=== PATIENT | male | born 1995 | race Caucasian/White ===

== ENCOUNTER → 2017-10-18 | Outpatient (CLI) | payer OTHER | LOC: M RAD 13:22 | DX: M79.604 Pain in right leg (principal); I73.00 Raynaud's syndrome without gangrene | CPT/HCPCS: 93926 ==

== ENCOUNTER → 2018-01-29 | Outpatient (CLI) | payer OTHER ==
[~2018-01-29] MED LIST: HEPARIN 1,000 UNITS/ML 10ML VIAL (FOR RADIOLOGY& DIALYSIS ONLY) As Ordered; ISOVUE-300 61% 50ML VIAL (Q9967) As Ordered; LIDOCAINE 2% MDV 20 ML VIAL As Ordered; MIDAZOLAM INJ 2 MG/2 ML VIAL (J2250) As Ordered; fentaNYL 100 MCG/2 ML INJECTION (J3010) As Ordered
[2018-01-29 07:23] LABS: HEMATOCRIT 47.3 % (42.0-52.0); HEMOGLOBIN 16.3 g/dl (13.5-17.5); MEAN CORPUSCULAR HEMOGLOBIN 31.6 pg (27.0-33.0); MEAN CORPUSCULAR HGB CONC 34.5 g/dl (32.0-36.5); MEAN CORPUSCULAR VOLUME 91.7 fl (80.0-96.0); PLATELET COUNT, AUTOMATED 227 10^3/uL (150-450); RED BLOOD COUNT 5.16 10^6/uL (4.30-6.10); RED CELL DISTRIBUTION WIDTH 11.5 % (11.5-14.5); WHITE BLOOD COUNT 8.4 10^3/uL (4.0-10.0)
[2018-01-29 07:32] LABS: INR 0.99; PROTHROMBIN TIME 13.1 SECONDS (12.1-14.4)
[2018-01-29 07:49] LABS: ANION GAP 6 MEQ/L (8-16); BLOOD UREA NITROGEN 23 MG/DL (7-18); CALCIUM LEVEL 9.1 MG/DL (8.5-10.1); CARBON DIOXIDE LEVEL 28 MEQ/L (21-32); CHLORIDE LEVEL 104 MEQ/L (98-107); CREATININE FOR GFR 1.27 MG/DL (0.70-1.30); GLOMERULAR FILTRATION RATE > 60.0 (>60); GLUCOSE, FASTING 104 MG/DL (70-100); SODIUM LEVEL 138 MEQ/L (136-145)
== END | disposition home or self-care (01) ==
LOC: M IRPRO 06:55
DX: I73.9 Peripheral vascular disease, unspecified (principal)
CPT/HCPCS: 36247

== ENCOUNTER 2018-04-22 09:56 | Outpatient (CLI) | payer OTHER ==
[~2018-04-22] VITALS: Ht 175.3 cm; Wt 94.3 kg
[~2018-04-22 09:56] MED LIST changes: +BUPIVACAINE HCL 0.5% 30 ML VIAL As Ordered ONE; +CONRAY-60 60% 50ML VIAL (Q9961) As Ordered ONE; +FERR325T16 PO; -HEPARIN 1,000 UNITS/ML 10ML VIAL (FOR RADIOLOGY& DIALYSIS ONLY) As Ordered; +HEPARIN SOD (PORCINE) 5000 UNITS/ML VIAL As Ordered ONE; -ISOVUE-300 61% 50ML VIAL (Q9967) As Ordered; +LIDOCAINE 1% SDV INJ 30 ML VIAL As Ordered ONE; -LIDOCAINE 2% MDV 20 ML VIAL As Ordered; +LR 1,000 ML IV ONE; -MIDAZOLAM INJ 2 MG/2 ML VIAL (J2250) As Ordered; +NORC1TAB4 PO; +NORCOTAB PO; +THROMBIN SOLN 20,000 UNITS KIT As Ordered ONE; -fentaNYL 100 MCG/2 ML INJECTION (J3010) As Ordered
[2018-04-22] MEDS ORDERED: ONDANSETRON 4MG/2ML VIAL (J2405) As Ordered ONE (10:11)
[2018-04-22] MEDS ORDERED: dexameTHASONE 4 MG/ML 1ML VIAL (J1100) As Ordered ONE (10:11)
[2018-04-22] MEDS ORDERED: LIDOCAINE 2% INJ 100 MG/5 ML SDV (FOR ANES.) As Ordered ONE (10:11)
[2018-04-22] MEDS ORDERED: PROPOFOL 200 MG/20 ML VIAL As Ordered ONE (10:11)
[2018-04-22] MEDS ORDERED: ROCURONIUM BROMIDE 50 MG/5 ML VIAL As Ordered ONE (10:11)
[2018-04-22] MEDS ORDERED: MIDAZOLAM INJ 2 MG/2 ML VIAL (J2250) As Ordered ONE (10:12)
[2018-04-22] MEDS ORDERED: fentaNYL 250 MCG/5 ML INJECTION (J3010) As Ordered ONE (10:12)
[2018-04-22 10:41] VITALS: BP 127/65
== END 2018-04-22 19:57 ==
LOC: M OROP 09:56 → EDSTATUS 11:00 → M OROP 19:57
PROVIDERS: ATTEND Surgery Vascular Surgery
DX: I73.9 Peripheral vascular disease, unspecified (principal); Z53.8 Procedure and treatment not carried out for other reasons

== ENCOUNTER 2018-05-01 13:14 | Inpatient (IN) | payer OTHER ==
[~2018-05-01] VITALS: Ht 175.3 cm; Wt 86.2 kg
[~2018-05-01 13:14] MED LIST changes: -BUPIVACAINE HCL 0.5% 30 ML VIAL As Ordered ONE; -CONRAY-60 60% 50ML VIAL (Q9961) As Ordered ONE; -HEPARIN SOD (PORCINE) 5000 UNITS/ML VIAL As Ordered ONE; -LIDOCAINE 1% SDV INJ 30 ML VIAL As Ordered ONE; -THROMBIN SOLN 20,000 UNITS KIT As Ordered ONE
[2018-05-01] MEDS ORDERED: BUPIVACAINE HCL 0.5% 30 ML VIAL As Ordered ONE (14:14)
[2018-05-01] MEDS ORDERED: LIDOCAINE 1% SDV INJ 30 ML VIAL As Ordered ONE (14:14)
[2018-05-01] MEDS ORDERED: HEPARIN SOD (PORCINE) 5000 UNITS/ML VIAL As Ordered ONE (14:14)
[2018-05-01] MEDS ORDERED: THROMBIN SOLN 20,000 UNITS KIT As Ordered ONE (14:14)
[2018-05-01] MEDS ORDERED: ISOVUE-300 61% 50ML VIAL (Q9967) As Ordered ONE (16:27)
[2018-05-01] MEDS ORDERED: LIDOCAINE 2% MDV 20 ML VIAL As Ordered ONE (16:27)
[2018-05-01] MEDS ORDERED: HEPARIN 1,000 UNITS/ML 10ML VIAL (FOR RADIOLOGY& DIALYSIS ONLY) As Ordered ONE (16:27)
[2018-05-01] MEDS ORDERED: fentaNYL 100 MCG/2 ML INJECTION (J3010) As Ordered ONE ×3 (16:32→17:21)
[2018-05-01] MEDS ORDERED: MIDAZOLAM INJ 2 MG/2 ML VIAL (J2250) As Ordered ONE ×3 (16:32→17:22)
[2018-05-01] MEDS ORDERED: BISACODYL 10 MG SUPP PR PRN (18:45)
[2018-05-01] MEDS ORDERED: HEPARIN DRIP 25,000 UNITS in APPROPRIATE DILUENT 1 EA IV SCH (18:51)
[2018-05-01] MEDS ORDERED: HEPARIN SOD (PORCINE) 5000 UNITS/ML VIAL IV ONE (19:00)
[2018-05-01] MEDS ORDERED: HEPARIN SOD (PORCINE) 5000 UNITS/ML VIAL IV PRN (19:00)
[2018-05-01 19:06] VITALS: BP 126/69
[2018-05-01 19:31] LABS: BASO # 0.1 10^3/uL (0.0-0.2); BASO % 0.5 % (0.0-1.0); EOS # 0.4 10^3/uL (0.0-0.50); EOS % 3.8 % (0.0-3.0); HEMATOCRIT 34.8 % (42.0-52.0); HEMOGLOBIN 11.9 g/dl (13.5-17.5); LYMPH # 2.1 10^3/uL (1.5-6.5); LYMPH % 22.5 % (24.0-44.0); MEAN CORPUSCULAR HEMOGLOBIN 31.1 pg (27.0-33.0); MEAN CORPUSCULAR HGB CONC 34.2 g/dl (32.0-36.5); MEAN CORPUSCULAR VOLUME 90.9 fl (80.0-96.0); MONO # 0.9 10^3/uL (0.0-0.8); NEUTROPHILS % 63.8 % (36.0-66.0); PLATELET COUNT, AUTOMATED 490 10^3/uL (150-450); RED BLOOD COUNT 3.83 10^6/uL (4.30-6.10); WHITE BLOOD COUNT 9.5 10^3/uL (4.0-10.0)
[2018-05-01 19:35] VITALS: BP 122/70
[2018-05-01 20:00] VITALS: BP 126/70
[2018-05-01 20:30] LABS: BLOOD UREA NITROGEN 12 MG/DL (7-18); CALCIUM LEVEL 8.9 MG/DL (8.5-10.1); CARBON DIOXIDE LEVEL 24 MEQ/L (21-32); CHLORIDE LEVEL 105 MEQ/L (98-107); CREATININE FOR GFR 1.04 MG/DL (0.70-1.30); GLOMERULAR FILTRATION RATE > 60.0 (>60); GLUCOSE, FASTING 76 MG/DL (70-100); POTASSIUM SERUM 4.3 MEQ/L (3.5-5.1); SODIUM LEVEL 138 MEQ/L (136-145)
[2018-05-01 21:00] VITALS: BP 130/71
[2018-05-01] MEDS: DOCUSATE SODIUM 100 MG CAP PO SCH (21:11)
[2018-05-01] MEDS: SENOKOT S TAB PO SCH (21:11)
[2018-05-01 22:00] VITALS: BP 127/66
--- NOTE | 2018-05-01 22:10 | HPEPDOC ---
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 Source: Patient Exam Limitations: No limitations Timing/Duration: Constant, Getting worse Severity: Moderate History of Present Illness Patient is a 22-year-old male who injured his right leg approximately a year and a half ago and underwent evaluation at [facility] for that was demonstrated that he had superficial femoral arterial occlusion on an MRA. Recommendation was for the patient at that time to continue with conservative management as his only symptoms were claudication in his right lower extremity. Patient has had worsening of his symptoms with claudication and less distance and is unable to perform his daily activities in the . Patient underwent angiography with an attempt to recanalize through the occluded SFA and popliteal artery without success. Patient then underwent exposure of the above and below knee popliteal artery with attempted recanalization and endovascular intervention without success. A third attempt at revascularization endovascular was performed with posterior tibial artery cannulation and attempted retrograde recanalization through the popliteal and superficial femoral arteries which was unsuccessful. The patient will undergo a right femoral to anterior tibial artery bypass with saphenous vein graft. Home Medications Scheduled Cilostazol (Cilostazol) 100 Mg Tab, 100 MG PO BID@0730,1730 Clopidogrel Bisulfate (Clopidogrel) 75 Mg Tab, 75 MG PO DAILY Ferrous Gluconate (Ferrous Gluconate) 324 Mg Tab, 1 TAB PO DAILY for iron Gabapentin (Gabapentin) 100 Mg Cap, 100 MG PO TID Scheduled PRN Oxycodone/Acetaminophen (Percocet 5MG/325MG Tablet) 1 Tab Tab, 2 TAB PO Q6HP PRN for SEVERE PAIN (PS 8-10) Allergies Coded Allergies: No Known Allergies (Unverified , 04/22/18) Subjective General Date/Time Seen The patient was seen on 05/01/18 at 16:09. 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 Current Medications Current Medications Current Medications Acetaminophen/ Hydrocodone Bitart ([place], Anexsia 5/325) 1 tab Q4HP PRN PO MOD ERATE PAIN (PS 5-7); Start 05/01/18 at 18:45 Bisacodyl (Dulcolax Suppository) 10 mg DAILYPRN PRN [place] CONSTIPATION; Start 05/01/18 at 18:45 Docusate Sodium (Colace) 100 mg BID PO Last administered on 05/01/18at 21:11; Start 05/01/18 at 21:00 Heparin Sodium (Porcine) (Heparin) ASDIRECTED PRN IV SEE LABEL COMMENTS; Start 05/01/18 at 19:00 Heparin Sodium (Porcine) 80788 units/IV Miscellaneous Supplies 250 ml @ 0 mls/hr Q0M IV Last administered on 05/01/18at 21:07; Start 05/01/18 at 18:51 Magnesium Hydroxide (Milk Of Magnesia) 30 ml DAILYPRN PRN PO CONSTIPATION; Start 05/01/18 at 18:45 Non-Formulary Medication (Heparin Iv Rate Change Documentation ml/ Hr) ASDIRECTED XX ; Start 05/01/18 at 19:00; Stop 05/06/18 at 18:59 Senna/Docusate Sodium (Senokot S) 1 tab BID PO Last administered on 05/01/18at 21:11; Start 05/01/18 at 21:00 Past Medical History Medical History Right lower extremity claudication with complete occlusion of his right superficial femoral and popliteal arteries. Surgical History Right lower extremity angiogram. Right above and below knee popliteal artery exposure with attempted endarterectomy and revascularization. Right lower extremity angiogram with ultrasound guided right posterior tibial artery cannulation with attempted recanalization of the occluded right superficial femoral and popliteal arteries which was unsuccessful. Family History Significant Family History: No pertinent family hx Social History * Smoker: current smoker, cigarettes Alcohol: Denies Drugs: denies Recent Travel/Sick Contacts: Denies: Recent travel, Recent sick contacts Psychosocial History: No pertinent psych hx Review of Systems Review of Systems General: Denies: Chills, Night Sweats, Fatigue, Malaise, Normal Appetite Constitutional: Denies: Chills, Fever, Malaise, Night Sweats, Weakness, Fatigue, Weight Loss, Lethargy Eyes: Denies: Pain, Vision change, Conjunctivae inflammation, Eyelid inflammation, Redness HEENT: Denies: Head Aches, Ear Pain, Dysphagia, Sinus Congestion, Post Nasal Drip, Sore Throat, Epistaxis Skin: Denies: Rash, Lesions, Jaundice, Bruising, Itching, Dry, Breakdown, Nail Changes Pulmonary: Denies: Dyspnea, Cough, Pleuritic Chest Pain Cardiovascular: Denies: Chest Pain, Palpitations, Orthopnea, Paroxysmal Noc. Dyspnea, Edema, Lt Headedness Gastrointestinal: Denies: Nausea, Vomiting, Abdominal Pain, Diarrhea, Constipation, Melena, Hematochezia Genitourinary: Denies: Dysuria, Frequency, Incontinence, Hematuria, Retention Hematologic: Denies: Bruising, Bleeding Excessively, Petecchia, Purpura, Enlarged Lymph Nodes ENDOCRINE: Denies: Polydipsia, Polyphagia, Polyuria, Heat Intolerance, Cold Intolerance Musculoskeletal: Denies: Neck Pain, Back Pain, Shoulder Pain, Arm Pain, Hand Pain, Leg Pain, Foot Pain, Joint Pain, Muscle Pain, Spasms Neurological: Denies: Weakness, Numbness, Incoordination, Change in speech, Confusion, Seizures Psych: Reports: Mood Normal; Denies: Anxiety, Depression, Memory Issues, Thoughts of Self Harm, Anger, Thoughts of Harming Other VITAL SIGNS VITAL SIGNS Vital Signs Date Time Temp Pulse Resp B/P (MAP) Pulse Ox O2 Delivery O2 Flow Rate FiO2 05/01/18 13:51 98.1 76 18 127/60 (82) 96 Room Air Laboratory Tests 05/01/18 19:22: Activated Partial Thromboplast Time 136.9*H 05/01/18 19:23: White Blood Count 9.5, Red Blood Count 3.83L, Hemoglobin 11.9L, Hematocrit 34.8L, Mean Corpuscular Volume 90.9, Mean Corpuscular Hemoglobin 31.1, Mean Corpuscular Hemoglobin Concent 34.2, Red Cell Distribution Width 11.2L, Platelet Count 490H, Neutrophils (%) (Auto) 63.8, Lymphocytes (%) (Auto) 22.5L, Monocytes (%) (Auto) 9.0H, Eosinophils (%) (Auto) 3.8H, Basophils (%) (Auto) 0.5, Neutrop hils # (Auto) 6.0, Lymphocytes # (Auto) 2.1, Monocytes # (Auto) 0.9H, Eosinophils # (Auto) 0.4, Basophils # (Auto) 0.1, Immature Granulocyte % (Auto) 0.4, Nucleated Red Blood Cells % (auto) 0.0, Blood Urea Nitrogen 12, Creatinine 1.04, Sodium Level 138, Potassium Level 4.3, Chloride Level 105, Carbon Dioxide Level 24, Calcium Level 8.9, Anion Gap 9, Glomerular Filtration Rate > 60.0, Fasting Glucose 76 Current Medications Medications (Trade) Dose Ordered Sig/Izabela Route PRN Reason Start Time Stop Time Status Last Admin Dose Admin Docusate Sodium (Colace) 100 mg BID PO 05/01/18 21:00 05/01/18 21:11 100 MG Heparin Sodium (Porcine) 48640 units/IV Miscellaneous Supplies 250 ml @ 0 mls/hr Q0M IV 05/01/18 18:51 05/01/18 21:07 14 MLS/HR Senna/Docusate Sodium (Senokot S) 1 tab BID PO 05/01/18 21:00 05/01/18 21:11 1 TAB Laboratory Tests 05/01/18 19:23 Red Blood Count 3.83 L, Mean Corpuscular Volume 90.9, Mean Corpuscular Hemoglobin 31.1, Mean Corpuscular Hemoglobin Concent 34.2, Red Cell Distribution Width 11.2 L, Neutrophils (%) (Auto) 63.8, Lymphocytes (%) (Auto) 22.5 L, Monocytes (%) (Auto) 9.0 H, Eosinophils (%) (Auto) 3.8 H, Basophils (%) (Auto) 0.5, Neutrophils # (Auto) 6.0, Lymphocytes # (Auto) 2.1, Monocytes # (Auto) 0.9 H, Eosinophils # (Auto) 0.4, Basophils # (Auto) 0.1, Calcium Level 8.9 Objective Physical Examination General Exam: Positive: Alert, Cooperative, Mild Distress Eye Exam: Positive: PERRLA, Conjunctiva & lids normal, EOMI ENT Exam: Positive: Atraumatic, Mucous membr. moist/pink, Pharynx Normal, Tongue Midline, Pharyngeal Edema, Nares Patent, Ext Auditory Canal Nml, Pinna Normal Neck Exam: Positive: Supple, +2 carotid pulse wo bruit; Negative: JVD, thyromegaly, Lymphadenopathy Chest Exam: Positive: Clear to auscultation, Normal air movement; Negative: Rales, Rhonchi, Wheezing, Diminished Heart Exam: Positive: Rate Normal; Negative: Tachycardic, Bradycardic, Regular Rhythm, Irregular Rhythm, Gallops, Murmurs, Rubs Telemetry: Positive: No significant arrhythmia, Sinus Abdomen Exam: Positive: Normal bowel sounds, Soft; Negative: BS Hyperactive, BS Hypoactive, Tenderness, Hepatospenomegaly, Mass, Hernia Male Exam: Positive: Normal Genital Exam Extremity Exam: Positive: Normal pulses (patient with nonpalpable popliteal dorsalis pedis and posterior tibial pulses in the right lower extremity. The pulses in the right lower extremity are obtainable with continuous wave Doppler ultrasound and are monophasic.); Negative: Clubbing, Cyanosis, Edema, Tenderness, Swelling Skin Exam: Positive: Nl turgor and temperature; Negative: Rash, Breakdown, Lesion, Pruritus Neuro Exam: Positive: Normal Gait, Normal Speech, Strength at 5/5 X4 ext, Normal Tone, Sensation Intact, Cranial Nerves 3-12 NL, Reflexes 2+ Psych Exam: Positive: Mental status NL, Mood NL, Memory Intact, Oriented x 3; Negative: Anxiety Assessment/Plan Assessment 22-year-old female with complete occlusion of his right side superficial femoral and popliteal artery with severe debilitating claudication in his right lower extremity. Patient has undergone multiple endovascular and hybrid combined open and endovascular attempts at revascularization without success. Patient will now undergo a right femoral to anterior tibial artery bypass graft with saphenous vein graft. Plan Right femoral to anterior tibial artery bypass grafting with saphenous vein graft. Pradeep Jefferson MD May 01, 2018 22:10
[2018-05-01 23:00] VITALS: BP 124/68
[2018-05-02] VITALS: BP 128/60
[2018-05-02] MEDS: NORCO, ANEXSIA 5/325MG TABLET (HYDROcodone/ACETAMINOPHEN) PO PRN (01:35)
[2018-05-02 05:00] VITALS: BP 125/63
--- NOTE | 2018-05-02 08:39 | ECGEPIP ---
Stationary ECG Study [facility] Test Date: 2018-05-01 Pat Name: MARIAH REDDY Department: Room: - Gender: M Silk Screener: : 1995 Requested By: SANDIP Mendez Order Number: [id number] Reading MD: Liliana Chen Measurements Intervals [place] Rate: 71 P: 67 [place]: 132 QRS: 61 QRSD: 86 T: 42 QT: 358 QTc: 389 Interpretive Statements SINUS RHYTHM WITH SINUS ARRHYTHMIA NO PRIOR Electronically Signed On 05-02-2018 8:39:13 EST by Liliana Chen
[2018-05-02] MEDS: DOCUSATE SODIUM 100 MG CAP PO SCH ×2 (12:06→21:00)
[2018-05-02] MEDS: SENOKOT S TAB PO SCH ×2 (12:06→21:00)
[2018-05-02 14:00] VITALS: BP 130/66
[2018-05-02] MEDS ORDERED: LIDOCAINE 1% SDV INJ 30 ML VIAL As Ordered ONE (14:25)
[2018-05-02] MEDS ORDERED: THROMBIN SOLN 20,000 UNITS KIT As Ordered ONE (14:25)
[2018-05-02] MEDS ORDERED: HEPARIN SOD (PORCINE) 5000 UNITS/ML VIAL As Ordered ONE ×2 (14:25→16:04)
[2018-05-02] MEDS ORDERED: BUPIVACAINE HCL 0.5% 30 ML VIAL As Ordered ONE (14:25)
[2018-05-02] MEDS ORDERED: ROCURONIUM BROMIDE 50 MG/5 ML VIAL As Ordered ONE ×3 (14:29→21:49)
[2018-05-02] MEDS ORDERED: PROPOFOL 200 MG/20 ML VIAL As Ordered ONE (14:29)
[2018-05-02] MEDS ORDERED: dexameTHASONE 4 MG/ML 1ML VIAL (J1100) As Ordered ONE (14:29)
[2018-05-02] MEDS ORDERED: fentaNYL 250 MCG/5 ML INJECTION (J3010) As Ordered ONE (14:29)
[2018-05-02] MEDS ORDERED: LIDOCAINE 2% INJ 100 MG/5 ML SDV (FOR ANES.) As Ordered ONE ×2 (14:29→16:07)
[2018-05-02] MEDS ORDERED: MIDAZOLAM INJ 2 MG/2 ML VIAL (J2250) As Ordered ONE ×2 (14:29→21:51)
[2018-05-02] MEDS ORDERED: ceFAZolin 2 GM/D5W 50 ML IV BAG (J0690 PER 500MG) As Ordered ONE ×3 (15:06→23:24)
[2018-05-02] MEDS ORDERED: HYDROmorphone HCL 2 MG/ML 1ML VIAL (J1170) As Ordered ONE (15:52)
[2018-05-02] MEDS ORDERED: ONDANSETRON 4MG/2ML VIAL (J2405) As Ordered ONE (16:06)
[2018-05-02] MEDS ORDERED: KETOROLAC 60 MG/2 ML VIAL (J1885) As Ordered ONE (16:07)
[2018-05-02] MEDS ORDERED: SUGAMMADEX SODIUM 500 MG/5 ML VIAL (BRIDION) As Ordered ONE (16:07)
[2018-05-02] MEDS ORDERED: KETAMINE HCL 200 MG/20 ML VIAL As Ordered ONE (16:13)
[2018-05-02] MEDS ORDERED: fentaNYL 100 MCG/2 ML INJECTION (J3010) As Ordered ONE ×2 (19:03→23:31)
[2018-05-02 22:34] LABS: MEAN CORPUSCULAR HEMOGLOBIN 31.3 pg (27.0-33.0); MEAN CORPUSCULAR HGB CONC 35.5 g/dl (32.0-36.5); MEAN CORPUSCULAR VOLUME 88.4 fl (80.0-96.0); PLATELET COUNT, AUTOMATED 402 10^3/uL (150-450); RED BLOOD COUNT 2.84 10^6/uL (4.30-6.10); WHITE BLOOD COUNT 11.1 10^3/uL (4.0-10.0)
[2018-05-02 22:37] LABS: HEMATOCRIT 25.1 % (42.0-52.0); HEMOGLOBIN 8.9 g/dl (13.5-17.5)
[2018-05-02] MEDS ORDERED: LR 1,000 ML IV SCH (23:30)
[2018-05-02] MEDS ORDERED: PERCOCET 5MG/325MG TAB PO PRN (23:30)
[2018-05-02] MEDS: fentaNYL 100 MCG/2 ML INJECTION (J3010) IV PRN ×4 (23:35→23:50)
[2018-05-02] MEDS ORDERED: HYDROMORPHONE HCL 0.5 MG/ 0.5 ML SYRINGE (J1170 PER 1) IV PRN (23:45)
[2018-05-02] MEDS ORDERED: HYDROMORPHONE HCL 0.5 MG/ 0.5 ML SYRINGE (J1170 PER 1) As Ordered ONE (23:57)
[2018-05-03] VITALS (9 sets, daily range): BP systolic 129–153; BP diastolic 63–80
[2018-05-03] MEDS ORDERED: METOCLOPRAMIDE INJ 10MG/2ML VIAL (J2765) IV PRN (00:30)
[2018-05-03] MEDS ORDERED: METOCLOPRAMIDE INJ 10MG/2ML VIAL (J2765) As Ordered ONE (00:34)
[2018-05-03] MEDS ORDERED: ONDANSETRON 4MG/2ML VIAL (J2405) IV PRN (01:15)
[2018-05-03] MEDS: MORPHINE 4 MG/ML 1ML VIAL/SYRINGE (J2270) IV PRN ×9 (01:23→23:24)
[2018-05-03] MEDS: NORCO, ANEXSIA 5/325MG TABLET (HYDROcodone/ACETAMINOPHEN) PO PRN ×5 (04:33→22:11)
[2018-05-03] MEDS: DOCUSATE SODIUM 100 MG CAP PO SCH ×2 (07:52→19:40)
[2018-05-03] MEDS: SENOKOT S TAB PO SCH ×2 (07:53→19:40)
[2018-05-03 19:11] LABS: INR 1.18; PROTHROMBIN TIME 15.2 SECONDS (12.1-14.4)
[2018-05-03 19:12] LABS: PARTIAL THROMBOPLASTIN TIME 31.2 SECONDS (25.4-37.6)
[2018-05-03 19:13] LABS: BASO % 0.2 % (0.0-1.0); EOS # 0.1 10^3/uL (0.0-0.50); EOS % 0.6 % (0.0-3.0); HEMATOCRIT 27.6 % (42.0-52.0); HEMOGLOBIN 9.7 g/dl (13.5-17.5); LYMPH # 2.1 10^3/uL (1.5-6.5); LYMPH % 19.7 % (24.0-44.0); MEAN CORPUSCULAR HEMOGLOBIN 30.9 pg (27.0-33.0); MEAN CORPUSCULAR HGB CONC 35.1 g/dl (32.0-36.5); MEAN CORPUSCULAR VOLUME 87.9 fl (80.0-96.0); MONO % 9.9 % (0.0-5.0); NEUTROPHILS # 7.3 10^3/uL (1.8-7.7); RED BLOOD COUNT 3.14 10^6/uL (4.30-6.10); WHITE BLOOD COUNT 10.5 10^3/uL (4.0-10.0)
[2018-05-03 19:16] LABS: PLATELET COUNT, AUTOMATED 226 10^3/uL (150-450)
[2018-05-03 19:39] LABS: ERYTHROCYTE SEDIMENTATION RATE 46 mm/hr (0-15)
--- NOTE | 2018-05-03 22:04 | IPNPDOC ---
Subjective General Date/Time Seen The patient was seen on 05/03/18 at 22:03. Subject Chief Complaint/History The patient is a 22-year-old male admitted with a reason for visit of Claudication. Patient has significant pain in his right lower extremity. Current Medications Current Medications Current Medications Acetaminophen/ Hydrocodone Bitart ([place], Anexsia 5/325) 1 tab Q4HP PRN PO MODERATE PAIN (PS 5-7) Last administered on 05/03/18at 18:01; Start 05/01/18 at 18:45; Stop 05/03/18 at 20:44; Status DC Acetaminophen/ Hydrocodone Bitart ([place], Anexsia 5/325) 2 tab Q4HP PRN PO SEVERE PAIN (PS 8-10); Start 05/03/18 at 20:45 Bisacodyl (Dulcolax Suppository) 10 mg DAILYPRN PRN [place] CONSTIPATION; Start 05/01/18 at 18:45 Docusate Sodium (Colace) 100 mg BID PO Last administered on 05/03/18at 19:40; Start 05/01/18 at 21:00 Fentanyl Citrate (Sublimaze) 25 mcg Q5MP PRN IV MODERATE PAIN (PS 4-7) Last administered on 05/02/18at 23:50; Start 05/02/18 at 23:30; Stop 05/03/18 at 00:20; Status DC Heparin Sodium (Porcine) (Heparin) ASDIRECTED PRN IV SEE LABEL COMMENTS; Start 05/01/18 at 19:00; Stop 05/02/18 at 23:52; Status DC Heparin Sodium (Porcine) 69149 units/IV Miscellaneous Supplies 250 ml @ 0 mls/hr Q0M IV Last administered on 05/01/18at 21:07; Start 05/01/18 at 18:51; Stop 05/02/18 at 23:34; Status DC Hydromorphone HCl (Dilaudid) 0.5 mg Q15MP PRN IV MODERATE/SEVERE PAIN (PS 5-10) Last administered on 05/02/18at 23:58; Start 05/02/18 at 23:45; Stop 05/03/18 at 01:15; Status DC Lactated Ringer's 1,000 ml @ 100 mls/hr Q10H IV ; Start 05/02/18 at 23:30; Stop 05/03/18 at 01:00; Status DC Magnesium Hydroxide (Milk Of Magnesia) 30 ml DAILYPRN PRN PO CONSTIPATION; Start 05/01/18 at 18:45 Metoclopramide HCl (REGLAN INJection) 10 mg Q6HP PRN IV IF N/V OERSISTS IN RECOVERY Last administered on 05/03/18at 00:33; Start 05/03/18 at 00:30; Stop 05/03/18 at 01:30; Status DC Morphine Sulfate (Morphine Sulfate Inj) 2 mg Q30MP PRN IV SEVERE PAIN (PS 8-10) Last administered on 05/03/18at 20:32; Start 05/03/18 at 01:15 Non-Formulary Medication (Heparin Iv Rate Change Documentation ml/ Hr) ASDIRECTED XX ; Start 05/01/18 at 19:00; Stop 05/02/18 at 23:51; Status DC Ondansetron HCl (ZOFRAN INJection) 4 mg Q6HP PRN IV NAUSEA OR VOMITING Last administered on 05/03/18at 01:23; Start 05/03/18 at 01:15 Oxycodone/ Acetaminophen (Percocet 5mg/ 325mg Tablet) 1 tab ASDIRECTED PRN PO MILD/MODERATE PAIN (PS 1-7) Last administered on 05/03/18at 00:09; Start 05/02/18 at 23:30; Stop 05/03/18 at 01:00; Status DC Senna/Docusate Sodium (Senokot S) 1 tab BID PO Last administered on 05/03/18at 19:40; Start 05/01/18 at 21:00 Allergies Coded Allergies: No Known Allergies (Unverified , 04/22/18) VITAL SIGNS VITAL SIGNS Vital Signs Date Time Temp Pulse Resp B/P (MAP) Pulse Ox O2 Delivery O2 Flow Rate FiO2 05/03/18 20:45 18 05/03/18 20:32 16 05/03/18 19:40 16 05/03/18 18:31 16 05/03/18 18:01 18 05/03/18 17:25 16 05/03/18 16:05 18 05/03/18 14:03 16 05/03/18 14:00 98.8 77 15 140/70 (93) 99 2/9/19 13:38 16 05/03/18 10:00 96.0 86 12 129/67 (87) 100 05/03/18 09:23 16 05/03/18 07:49 16 05/03/18 06:00 98.7 66 12 139/74 (95) 98 05/03/18 04:33 16 05/03/18 04:00 98.1 74 13 142/72 (95) 97 05/03/18 03:00 97.9 72 12 140/69 (92) 96 05/03/18 02:04 18 05/03/18 02:00 98.5 73 14 153/80 (104) 100 05/03/18 01:30 98.1 78 16 143/65 (91) 98 05/03/18 01:23 18 05/03/18 01:00 97.7 86 14 140/74 (96) 97 05/03/18 00:46 79 97 05/03/18 00:45 79 16 131/68 (89) 97 Room Air 05/03/18 00:41 93 98 05/03/18 00:36 84 97 05/03/18 00:31 79 97 05/03/18 00:30 98.7 92 15 108/58 (75) 100 Nasal Cannula 2 05/03/18 00:10 92 108/58 (75) 100 05/03/18 00:09 98.5 92 14 108/58 100 2.0 05/03/18 00:06 130/60 (83) 05/03/18 00:05 88 100 05/03/18 00:00 90 14 178/75 (109) 100 Nasal Cannula 2 05/02/18 23:58 185/72 (109) 05/02/18 23:58 98.5 92 14 108/58 100 2.0 05/02/18 23:55 94 220/97 (138) 100 05/02/18 23:50 98.5 92 14 108/58 100 2.0 05/02/18 23:50 94 188/86 (120) 100 05/02/18 23:45 98.5 92 15 108/58 100 2.0 05/02/18 23:45 99 17 178/92 (120) 100 Nasal Cannula 2 05/02/18 23:40 98.5 92 14 108/58 100 2.0 05/02/18 23:40 100 180/81 (114) 100 05/02/18 23:35 16 100 05/02/18 23:35 103 177/87 (117) 100 05/02/18 23:30 98.5 109 16 181/84 (116) 100 Nasal Cannula 2 Intake & Output 05/03/18 06:00 Intake Total 7305 ml Output Total 3950 ml Balance 3355 ml Laboratory Tests 05/02/18 22:23: White Blood Count 11.1H, Red Blood Count 2.84L, Hemoglobin 8.9#L, Hematocrit 25.1L, Mean Corpuscular Volume 88.4, Mean Corpuscular Hemoglobin 31.3, Mean Corpuscular Hemoglobin Concent 35.5, Red Cell Distribution Width 11.0L, Platelet Count 402, Nucleated Red Blood Cells % (auto) 0.0 05/03/18 18:15: Prothrombin Time 15.2H, Prothromb Time International Ratio 1.18, Activated Partial Thromboplast Time 31.2, Lupus Anticoag DRVVT Screen Ratio [Pending] 05/03/18 18:18: White Blood Count 10.5H, Red Blood Count 3.14L, Hemoglobin 9.7L, Hematocrit 27.6L, Mean Corpuscular Volume 87.9, Mean Corpuscular Hemoglobin 30.9, Mean Corpuscular Hemoglobin Concent 35.1, Red Cell Distribution Width 12.1, Platelet Count 226#, Nucleated Red Blood Cells % (auto) 0.0, Neutrophils (%) (Auto) 69.0H, Lymphocytes (%) (Auto) 19.7L, Monocytes (%) (Auto) 9.9H, Eosinophils (%) (Auto) 0.6, Basophils (%) (Auto) 0.2, Neutrophils # (Auto) 7.3, Lymphocytes # (Auto) 2.1, Monocytes # (Auto) 1.0H, Eosinophils # (Auto) 0.1, Basophils # (Auto) 0.0, Immature Granulocyte % (Auto) 0.6, Erythrocyte Sedimentation Rate 46H, Protein C Antigen [Pending], Protein S Antigen [Pending], Free Protein S Antigen [Pending], Anti-Thrombin III Antigen [Pending], Anti-Thrombin III Activity [Pending], Coagulation Factor V Leiden [Pending], Factor II (Prothrombin) Mutation [Pending], C-Reactive Protein, Quantitative 4.86H, Homocysteine [Pending], Serum Cryoglobulins [Pending], Anti-Nuclear Antibody Screen [Pending], Atypical ANCA [Pending], Cytoplasmic ANCA (c-ANCA) Antibody [Pending], Perinuclear ANCA (p-ANCA) Antibody [Pending], EJ Antibody [Pending], SS-A/Ro Antibody [Pending], SS-B/La Antibody [Pending], Anti-Glomerular Basement Memb Ab [Pending], Anti-Cardiolipin IgG Antibody [Pending], Anti-Cardiolipin IgA Antibody [Pending], Anti-Cardiolipin IgM Antibody [Pending] Current Medications Medications (Trade) Dose Ordered Sig/Izabela Route PRN Reason Start Time Stop Time Status Last Admin Dose Admin Docusate Sodium (Colace) 100 mg BID PO 05/01/18 21:00 05/03/18 19:40 Morphine Sulfate (Morphine Sulfate Inj) 2 mg Q30MP PRN IV SEVERE PAIN (PS 8-10) 05/03/18 01:15 05/03/18 20:32 Ondansetron HCl (ZOFRAN INJection) 4 mg Q6HP PRN IV NAUSEA OR VOMITING 05/03/18 01:15 05/03/18 01:23 Senna/Docusate Sodium (Senokot S) 1 tab BID PO 05/01/18 21:00 05/03/18 19:40 Laboratory Tests 05/02/18 22:23 Red Blood Count 2.84 L, Mean Corpuscular Volume 88.4, Mean Corpuscular Hemoglobin 31.3, Mean Corpuscular Hemoglobin Concent 35.5, Red Cell Distribution Width 11.0 L 05/03/18 18:18 Red Blood Count 3.14 L, Mean Corpuscular Volume 87.9, Mean Corpuscular Hemoglobin 30.9, Mean Corpuscular Hemoglobin Concent 35.1, Red Cell Distribution Width 12.1, Neutrophils (%) (Auto) 69.0 H, Lymphocytes (%) (Auto) 19.7 L, Monocytes (%) (Auto) 9.9 H, Eosinophils (%) (Auto) 0.6, Basophils (%) (Auto) 0.2, Neutrophils # (Auto) 7.3, Lymphocytes # (Auto) 2.1, Monocytes # (Auto) 1.0 H, Eosinophils # (Auto) 0.1, Basophils # (Auto) 0.0 Objective Physical Examination General Exam: Positive: Alert, Cooperative, Mild Distress Eye Exam: Positive: PERRLA, Conjunctiva & lids normal, EOMI ENT Exam: Positive: Atraumatic, Mucous membr. moist/pink, Pharynx Normal, Tongue Midline, Pharyngeal Edema, Nares Patent, Ext Auditory Canal Nml, Pinna Normal Neck Exam: Positive: Supple, +2 carotid pulse wo bruit; Negative: JVD, thyromegaly, Lymphadenopathy Chest Exam: Positive: Clear to auscultation, Normal air movement; Negative: Rales, Rhonchi, Wheezing, Diminished Heart Exam: Positive: Rate Normal; Negative: Tachycardic, Bradycardic, Regular Rhythm, Irregular Rhythm, Gallops, Murmurs, Rubs Telemetry: Positive: No significant arrhythmia, Sinus Abdomen Exam: Positive: Normal bowel sounds, Soft; Negative: BS Hyperactive, BS Hypoactive, Tenderness, Hepatospenomegaly, Mass, Hernia Male Exam: Positive: Normal Genital Exam Extremity Exam: Positive: Normal pulses (patient with nonpalpable popliteal dorsalis pedis and posterior tibial pulses in the right lower extremity. The pulses in the right lower extremity are obtainable with continuous wave Doppler ultrasound and are monophasic.); Negative: Clubbing, Cyanosis, Edema, Tenderness, Swelling Skin Exam: Positive: Nl turgor and temperature; Negative: Rash, Breakdown, Lesion, Pruritus Neuro Exam: Positive: Normal Gait, Normal Speech, Strength at 5/5 X4 ext, Normal Tone, Sensation Intact, Cranial Nerves 3-12 NL, Reflexes 2+ Psych Exam: Positive: Mental status NL, Mood NL, Memory Intact, Oriented x 3; Negative: Anxiety Assessment/Plan Assessment Patient is status post attempted right lower extremity revascularization. Patient has significant pain in his right lower extremity from his incisions. Plan Patient will continue with pain control for his right lower extremity incisional pain. Patient will begin working with physical therapy. Pradeep Jefferson MD May 03, 2018 22:04
[2018-05-04] MEDS: MORPHINE 4 MG/ML 1ML VIAL/SYRINGE (J2270) IV PRN ×6 (01:13→12:34)
[2018-05-04] MEDS: NORCO, ANEXSIA 5/325MG TABLET (HYDROcodone/ACETAMINOPHEN) PO PRN ×3 (02:18→12:06)
[2018-05-04 06:00] VITALS: BP 137/62
[2018-05-04] MEDS: SENOKOT S TAB PO SCH ×2 (08:48→20:29)
[2018-05-04] MEDS: DOCUSATE SODIUM 100 MG CAP PO SCH ×2 (08:48→20:29)
[2018-05-04 10:00] VITALS: BP 130/57
[2018-05-04] MEDS: NS 1,000 ML IV SCH (13:29)
[2018-05-04] MEDS ORDERED: diphenhydrAMINE INJ 50MG/ML VIAL (J1200) IV PRN (13:30)
[2018-05-04] MEDS ORDERED: NALBUPHINE HCL 10 MG/ML AMP (J2300) IV PRN (13:30)
[2018-05-04] MEDS ORDERED: EPIDURAL/PCA KEYS XX PRN (13:30)
[2018-05-04] MEDS ORDERED: ONDANSETRON 4MG/2ML VIAL (J2405) IV PRN (13:30)
[2018-05-04] MEDS ORDERED: NALOXONE INJ 0.4 MG/1 ML VIAL (J2310) IV PRN (13:30)
--- NOTE | 2018-05-04 13:40 | IPNPDOC ---
Subjective General Date/Time Seen The patient was seen on 05/04/18 at 13:38. Subject Chief Complaint/History The patient is a 22-year-old male admitted with a reason for visit of Claudication. Patient's pain is slightly improved. Patient has difficulty ambulating due to pain when stepping on his right lower extremity. Current Medications Current Medications Current Medications Acetaminophen/ Hydrocodone Bitart ([place], Anexsia 5/325) 1 tab Q4HP PRN PO MODERATE PAIN (PS 5-7) Last administered on 05/03/18at 18:01; Start 05/01/18 at 18:45; Stop 05/03/18 at 20:44; Status DC Acetaminophen/ Hydrocodone Bitart ([place], Anexsia 5/325) 2 tab Q4HP PRN PO SEVERE PAIN (PS 8-10) Last administered on 05/04/18at 12:06; Start 05/03/18 at 20:45; Stop 05/04/18 at 13:33; Status DC Bisacodyl (Dulcolax Suppository) 10 mg DAILYPRN PRN [place] CONSTIPATION; Start 05/01/18 at 18:45 Diphenhydramine HCl (Benadryl) 12.5 mg Q4HP PRN IV ITCHING; Start 05/04/18 at 13:30; Status UNV Docusate Sodium (Colace) 100 mg BID PO Last administered on 05/04/18at 08:48; Start 05/01/18 at 21:00 Fentanyl Citrate (Sublimaze) 25 mcg Q5MP PRN IV MODERATE PAIN (PS 4-7) Last administered on 05/02/18at 23:50; Start 05/02/18 at 23:30; Stop 05/03/18 at 00:20; Status DC Heparin Sodium (Porcine) (Heparin) ASDIRECTED PRN IV SEE LABEL COMMENTS; Start 05/01/18 at 19:00; Stop 05/02/18 at 23:52; Status DC Heparin Sodium (Porcine) 47976 units/IV Miscellaneous Supplies 250 ml @ 0 mls/hr Q0M IV Last administered on 05/01/18at 21:07; Start 05/01/18 at 18:51; Stop 05/02/18 at 23:34; Status DC Hydromorphone HCl (Dilaudid) 0.5 mg Q15MP PRN IV MODERATE/SEVERE PAIN (PS 5-10) Last administered on 05/02/18at 23:58; Start 05/02/18 at 23:45; Stop 05/03/18 at 01:15; Status DC Lactated Ringer's 1,000 ml @ 100 mls/hr Q10H IV ; Start 05/02/18 at 23:30; Stop 05/03/18 at 01:00; Status DC Magnesium Hydroxide (Milk Of Magnesia) 30 ml DAILYPRN PRN PO CONSTIPATION; Start 05/01/18 at 18:45 Metoclopramide HCl (REGLAN INJection) 10 mg Q6HP PRN IV IF N/V OERSISTS IN RECOVERY Last administered on 05/03/18at 00:33; Start 05/03/18 at 00:30; Stop 05/03/18 at 01:30; Status DC Morphine Sulfate (Morphine Sulfate In 0.9%Nacl Iv Bag) 1 mg ASDIRECTED PRN IV SEE LABEL COMMENTS; Start 05/04/18 at 13:30; Status UNV Morphine Sulfate (Morphine Sulfate Inj) 2 mg Q30MP PRN IV SEVERE PAIN (PS 8-10) Last administered on 05/04/18at 12:34; Start 05/03/18 at 01:15; Stop 05/04/18 at 13:33; Status DC Nalbuphine HCl (Nubain) 2.5 mg Q6HP PRN IV PRURITIS; Start 05/04/18 at 13:30; Stop 05/11/18 at 13:29; Status UNV Naloxone HCl (Narcan) 0.1 mg Q5MP PRN IV SEE LABEL COMMENTS; Start 05/04/18 at 13:30; Status UNV Non-Formulary Medication (Epidural/PLUSH WEAVER [place]) USE THIS ENTRY TO VEND ... Q1M PRN XX SEE LABEL COMMENTS; Start 05/04/18 at 13:30; Status UNV Non-Formulary Medication (Heparin Iv Rate Change Documentation ml/ Hr) ASDIRECTED XX ; Start 05/01/18 at 19:00; Stop 05/02/18 at 23:51; Status DC Ondansetron HCl (ZOFRAN INJection) 4 mg Q6HP PRN IV NAUSEA; Start 05/04/18 at 13:30; Status UNV Ondansetron HCl (ZOFRAN INJection) 4 mg Q6HP PRN IV NAUSEA OR VOMITING Last administered on 05/03/18at 01:23; Start 05/03/18 at 01:15 Oxycodone/ Acetaminophen (Percocet 5mg/ 325mg Tablet) 1 tab ASDIRECTED PRN PO MILD/MODERATE PAIN (PS 1-7) Last administered on 05/03/18at 00:09; Start 05/02/18 at 23:30; Stop 05/03/18 at 01:00; Status DC Senna/Docusate Sodium (Senokot S) 1 tab BID PO Last administered on 05/04/18at 08:48; Start 05/01/18 at 21:00 Sodium Chloride 1,000 ml @ 15 mls/hr Q24H IV ; Start 05/04/18 at 13:29; Status UNV Allergies Coded Allergies: No Known Allergies (Unverified , 04/22/18) VITAL SIGNS VITAL SIGNS Vital Signs Date Time Temp Pulse Resp B/P (MAP) Pulse Ox O2 Delivery O2 Flow Rate FiO2 05/04/18 12:36 14 05/04/18 12:34 14 05/04/18 12:06 16 05/04/18 10:20 12 05/04/18 10:10 13 05/04/18 10:00 98.7 88 16 130/57 (81) 98 05/04/18 08:48 12 05/04/18 06:28 15 05/04/18 06:00 98.5 90 15 137/62 (87) 98 05/04/18 05:01 18 05/04/18 03:44 16 05/04/18 02:18 18 05/04/18 01:13 18 05/03/18 23:24 18 05/03/18 22:11 15 05/03/18 22:00 98.7 86 18 141/63 (89) 100 05/03/18 20:32 16 05/03/18 19:40 16 05/03/18 18:31 16 05/03/18 18:01 18 05/03/18 17:25 16 05/03/18 16:05 18 05/03/18 14:03 16 05/03/18 14:00 98.8 77 15 140/70 (93) 99 Intake & Output 05/04/18 06:00 Intake Total 1590 ml Output Total 5200 ml Balance -3610 ml Laboratory Tests 05/03/18 18:15: Prothrombin Time 15.2H, Prothromb Time International Ratio 1.18, Activated Partial Thromboplast Time 31.2, Lupus Anticoag DRVVT Screen Ratio [Pending] 05/03/18 18:18: White Blood Count 10.5H, Red Blood Count 3.14L, Hemoglobin 9.7L, Hematocrit 27.6L, Mean Corpuscular Volume 87.9, Mean Corpuscular Hemoglobin 30.9, Mean Corpuscular Hemoglobin Concent 35.1, Red Cell Distribution Width 12.1, Platelet Count 226#, Neutrophils (%) (Auto) 69.0H, Lymphocytes (%) (Auto) 19.7L, Monocytes (%) (Auto) 9.9H, Eosinophils (%) (Auto) 0.6, Basophils (%) (Auto) 0.2, Neutrophils # (Auto) 7.3, Lymphocytes # (Auto) 2.1, Monocytes # (Auto) 1.0H, Eosinophils # (Auto) 0.1, Basophils # (Auto) 0.0, Immature Granulocyte % (Auto) 0.6, Nucleated Red Blood Cells % (auto) 0.0, Erythrocyte Sedimentation Rate 46H, Protein C Antigen [Pending], Protein S Antigen [Pending], Free Protein S Antigen [Pending], Anti-Thrombin III Antigen [Pending], Anti-Thrombin III Activity [Pending], Coagulation Factor V Leiden [Pending], Factor II (Prothrombin) Mutation [Pending], C-Reactive Protein, Quantitative 4.86H, Homocysteine [Pending], Serum Cryoglobulins [Pending], Anti-Nuclear Antibody Screen [Pending], Atypical ANCA [Pending], Cytoplasmic ANCA (c-ANCA) Antibody [Pending], Perinuclear ANCA (p-ANCA) Antibody [Pending], EJ Antibody [Pending], SS-A/Ro Antibody [Pending], SS-B/La Antibody [Pending], Anti-Glomerular Basement Memb Ab [Pending], Anti-Cardiolipin IgG Antibody [Pending], Anti-Cardiolipin IgA Antibody [Pending], Anti-Cardiolipin IgM Antibody [Pending] Current Medications Medications (Trade) Dose Ordered Sig/Izabela Route PRN Reason Start Time Stop Time Status Last Admin Dose Admin Docusate Sodium (Colace) 100 mg BID PO 05/01/18 21:00 05/04/18 08:48 Ondansetron HCl (ZOFRAN INJection) 4 mg Q6HP PRN IV NAUSEA OR VOMITING 05/03/18 01:15 05/03/18 01:23 Senna/Docusate Sodium (Senokot S) 1 tab BID PO 05/01/18 21:00 05/04/18 08:48 Laboratory Tests 05/02/18 22:23 Red Blood Count 2.84 L, Mean Corpuscular Volume 88.4, Mean Corpuscular Hemoglobin 31.3, Mean Corpuscular Hemoglobin Concent 35.5, Red Cell Distribution Width 11.0 L 05/03/18 18:18 Red Blood Count 3.14 L, Mean Corpuscular Volume 87.9, Mean Corpuscular Hemoglobin 30.9, Mean Corpuscular Hemoglobin Concent 35.1, Red Cell Distribution Width 12.1, Neutrophils (%) (Auto) 69.0 H, Lymphocytes (%) (Auto) 19.7 L, Monocytes (%) (Auto) 9.9 H, Eosinophils (%) (Auto) 0.6, Basophils (%) (Auto) 0.2, Neutrophils # (Auto) 7.3, Lymphocytes # (Auto) 2.1, Monocytes # (Auto) 1.0 H, Eosinophils # (Auto) 0.1, Basophils # (Auto) 0.0 Objective Physical Examination General Exam: Positive: Alert, Cooperative, Mild Distress Eye Exam: Positive: PERRLA, Conjunctiva & lids normal, EOMI ENT Exam: Positive: Atraumatic, Mucous membr. moist/pink, Pharynx Normal, Tongue Midline, Pharyngeal Edema, Nares Patent, Ext Auditory Canal Nml, Pinna Normal Neck Exam: Positive: Supple, +2 carotid pulse wo bruit; Negative: JVD, thyromegaly, Lymphadenopathy Chest Exam: Positive: Clear to auscultation, Normal air movement; Negative: Rales, Rhonchi, Wheezing, Diminished Heart Exam: Positive: Rate Normal; Negative: Tachycardic, Bradycardic, Regular Rhythm, Irregular Rhythm, Gallops, Murmurs, Rubs Telemetry: Positive: No significant arrhythmia, Sinus Abdomen Exam: Positive: Normal bowel sounds, Soft; Negative: BS Hyperactive, BS Hypoactive, Tenderness, Hepatospenomegaly, Mass, Hernia Male Exam: Positive: Normal Genital Exam Extremity Exam: Positive: Normal pulses (patient with nonpalpable popliteal dorsalis pedis and posterior tibial pulses in the right lower extremity. The pulses in the right lower extremity are obtainable with continuous wave Doppler ultrasound and are monophasic.); Negative: Clubbing, Cyanosis, Edema, Tenderness, Swelling Skin Exam: Positive: Nl turgor and temperature; Negative: Rash, Breakdown, Lesion, Pruritus Neuro Exam: Positive: Normal Gait, Normal Speech, Strength at 5/5 X4 ext, Normal Tone, Sensation Intact, Cranial Nerves 3-12 NL, Reflexes 2+ Psych Exam: Positive: Mental status NL, Mood NL, Memory Intact, Oriented x 3; Negative: Anxiety Assessment/Plan Assessment Patient is status post attempted right lower extremity revascularization secondary to his occluded superficial femoral and popliteal arteries. Patient has continued pain in his right lower extremity. Patient's right lower extremity is well-perfused. Plan Patient will continue with aggressive pain management. Patient was counseled on the need to stop tobacco use as this is the primary cause of his right lower extremity disease. Patient will continue with aggressive physical therapy. Pradeep Jefferson MD May 04, 2018 13:40
[2018-05-04 14:00] VITALS: BP 148/75
[2018-05-04] MEDS: MORPHINE 1MG/ML IN 0.9% NACL 100ML IV BAG IV PRN (14:26)
[2018-05-04 18:00] VITALS: BP 160/80
[2018-05-04 22:00] VITALS: BP 143/81
[2018-05-05 02:00] VITALS: BP 138/75
[2018-05-05 06:00] VITALS: BP 145/65
[2018-05-05] MEDS: SENOKOT S TAB PO SCH ×2 (08:15→20:10)
[2018-05-05] MEDS: DOCUSATE SODIUM 100 MG CAP PO SCH ×2 (08:15→20:10)
[2018-05-05 10:00] VITALS: BP 170/78
[2018-05-05] MEDS: NS 1,000 ML IV SCH (13:54)
[2018-05-05] MEDS: MORPHINE 1MG/ML IN 0.9% NACL 100ML IV BAG IV PRN (13:54)
[2018-05-05 14:00] VITALS: BP 147/69
[2018-05-05 18:00] VITALS: BP 136/71
--- NOTE | 2018-05-05 20:52 | IPNPDOC ---
Subjective General Date/Time Seen The patient was seen on 05/05/18 at 20:50. Subject Chief Complaint/History The patient is a 22-year-old male admitted with a reason for visit of Claudication. Patient's pain is slightly improved. A shunt has no other complaints. Current Medications Current Medications Current Medications Acetaminophen/ Hydrocodone Bitart ([place], Anexsia 5/325) 1 tab Q4HP PRN PO MODERATE PAIN (PS 5-7) Last administered on 05/03/18at 18:01; Start 05/01/18 at 18:45; Stop 05/03/18 at 20:44; Status DC Acetaminophen/ Hydrocodone Bitart ([place], Anexsia 5/325) 2 tab Q4HP PRN PO SEVERE PAIN (PS 8-10) Last administered on 05/04/18at 12:06; Start 05/03/18 at 20:45; Stop 05/04/18 at 13:33; Status DC Bisacodyl (Dulcolax Suppository) 10 mg DAILYPRN PRN [place] CONSTIPATION; Start 05/01/18 at 18:45 Diphenhydramine HCl (Benadryl) 12.5 mg Q4HP PRN IV ITCHING; Start 05/04/18 at 1 3:30 Docusate Sodium (Colace) 100 mg BID PO Last administered on 05/05/18at 20:10; Start 05/01/18 at 21:00 Fentanyl Citrate (Sublimaze) 25 mcg Q5MP PRN IV MODERATE PAIN (PS 4-7) Last administered on 05/02/18at 23:50; Start 05/02/18 at 23:30; Stop 05/03/18 at 00:20; Status DC Heparin Sodium (Porcine) (Heparin) ASDIRECTED PRN IV SEE LABEL COMMENTS; Start 05/01/18 at 19:00; Stop 05/02/18 at 23:52; Status DC Heparin Sodium (Porcine) 73624 units/IV Miscellaneous Supplies 250 ml @ 0 mls/hr Q0M IV Last administered on 05/01/18at 21:07; Start 05/01/18 at 18:51; Stop 05/02/18 at 23:34; Status DC Hydromorphone HCl (Dilaudid) 0.5 mg Q15MP PRN IV MODERATE/SEVERE PAIN (PS 5-10) Last administered on 05/02/18at 23:58; Start 05/02/18 at 23:45; Stop 05/03/18 at 01:15; Status DC Lactated Ringer's 1,000 ml @ 100 mls/hr Q10H IV ; Start 05/02/18 at 23:30; Stop 05/03/18 at 01:00; Status DC Magnesium Hydroxide (Milk Of Magnesia) 30 ml DAILYPRN PRN PO CONSTIPATION; Start 05/01/18 at 18:45 Metoclopramide HCl (REGLAN INJection) 10 mg Q6HP PRN IV IF N/V OERSISTS IN RECOVERY Last administered on 05/03/18at 00:33; Start 05/03/18 at 00:30; Stop 05/03/18 at 01:30; Status DC Morphine Sulfate (Morphine Sulfate In 0.9%Nacl Iv Bag) 1 mg ASDIRECTED PRN IV SEE LABEL COMMENTS Last administered on 05/05/18at 13:54; Start 05/04/18 at 13:30 Morphine Sulfate (Morphine Sulfate Inj) 2 mg Q30MP PRN IV SEVERE PAIN (PS 8-10) Last administered on 05/04/18at 12:34; Start 05/03/18 at 01:15; Stop 05/04/18 at 13:33; Status DC Nalbuphine HCl (Nubain) 2.5 mg Q6HP PRN IV PRURITIS; Start 05/04/18 at 13:30; Stop 05/11/18 at 13:29 Naloxone HCl (Narcan) 0.1 mg Q5MP PRN IV SEE LABEL COMMENTS; Start 05/04/18 at 13:30 Non-Formulary Medication (Epidural/LINEMAN A CLASS [place]) USE THIS ENTRY TO VEND ... Q1M PRN XX SEE LABEL COMMENTS; Start 05/04/18 at 13:30 Non-Formulary Medication (Heparin Iv Rate Change Documentation ml/ Hr) ASDIRECTED XX ; Start 05/01/18 at 19:00; Stop 05/02/18 at 23:51; Status DC Ondansetron HCl (ZOFRAN INJection) 4 mg Q6HP PRN IV NAUSEA; Start 05/04/18 at 13:30 Ondansetron HCl (ZOFRAN INJection) 4 mg Q6HP PRN IV NAUSEA OR VOMITING Last administered on 05/03/18at 01:23; Start 05/03/18 at 01:15 Oxycodone/ Acetaminophen (Percocet 5mg/ 325mg Tablet) 1 tab ASDIRECTED PRN PO MILD/MODERATE PAIN (PS 1-7) Last administered on 05/03/18at 00:09; Start 05/02/18 at 23:30; Stop 05/03/18 at 01:00; Status DC Senna/Docusate Sodium (Senokot S) 1 tab BID PO Last administered on 05/05/18at 20:10; Start 05/01/18 at 21:00 Sodium Chloride 1,000 ml @ 15 mls/hr Q24H IV Last administered on 05/05/18at 13:54; Start 05/04/18 at 13:29 Allergies Coded Allergies: No Known Allergies (Unverified , 04/22/18) VITAL SIGNS VITAL SIGNS Vital Signs Date Time Temp Pulse Resp B/P (MAP) Pulse Ox O2 Delivery O2 Flow Rate FiO2 05/05/18 18:00 99.8 87 16 136/71 (92) 99 05/05/18 14:00 98.7 84 14 147/69 (95) 100 05/05/18 10:00 99.4 97 14 170/78 (108) 98 05/05/18 09:00 11 05/05/18 06:00 99.2 106 13 145/65 (91) 98 05/05/18 05:52 16 05/05/18 02:00 99.7 105 16 138/75 (96) 98 05/04/18 22:00 99.0 98 16 143/81 (101) 99 Intake & Output 05/05/18 06:00 Intake Total 2572.5 ml Output Total 3100 ml Balance -527.5 ml Current Medications Medications (Trade) Dose Ordered Sig/Izabela Route PRN Reason Start Time Stop Time Status Last Admin Dose Admin Docusate Sodium (Colace) 100 mg BID PO 05/01/18 21:00 05/05/18 20:10 Morphine Sulfate (Morphine Sulfate In 0.9%Nacl Iv Bag) 1 mg ASDIRECTED PRN IV SEE LABEL COMMENTS 05/04/18 13:30 05/05/18 13:54 Ondansetron HCl (ZOFRAN INJection) 4 mg Q6HP PRN IV NAUSEA OR VOMITING 05/03/18 01:15 05/03/18 01:23 Senna/Docusate Sodium (Senokot S) 1 tab BID PO 05/01/18 21:00 05/05/18 20:10 Sodium Chloride 1,000 ml @ 15 mls/hr Q24H IV 05/04/18 13:29 05/05/18 13:54 Objective Physical Examination General Exam: Positive: Alert, Cooperative, Mild Distress Eye Exam: Positive: PERRLA, Conjunctiva & lids normal, EOMI ENT Exam: Positive: Atraumatic, Mucous membr. moist/pink, Pharynx Normal, Tongue Midline, Pharyngeal Edema, Nares Patent, Ext Auditory Canal Nml, Pinna Normal Neck Exam: Positive: Supple, +2 carotid pulse wo bruit; Negative: JVD, thyromegaly, Lymphadenopathy Chest Exam: Positive: Clear to auscultation, Normal air movement; Negative: Rales, Rhonchi, Wheezing, Diminished Heart Exam: Positive: Rate Normal; Negative: Tachycardic, Bradycardic, Regular Rhythm, Irregular Rhythm, Gallops, Murmurs, Rubs Telemetry: Positive: No significant arrhythmia, Sinus Abdomen Exam: Positive: Normal bowel sounds, Soft; Negative: BS Hyperactive, BS Hypoactive, Tenderness, Hepatospenomegaly, Mass, Hernia Male Exam: Positive: Normal Genital Exam Extremity Exam: Positive: Normal pulses (patient with nonpalpable popliteal dorsalis pedis and posterior tibial pulses in the right lower extremity. The pulses in the right lower extremity are obtainable with continuous wave Doppler ultrasound and are monophasic.); Negative: Clubbing, Cyanosis, Edema, Tenderness, Swelling Skin Exam: Positive: Nl turgor and temperature; Negative: Rash, Breakdown, Lesion, Pruritus Neuro Exam: Positive: Normal Gait, Normal Speech, Strength at 5/5 X4 ext, Normal Tone, Sensation Intact, Cranial Nerves 3-12 NL, Reflexes 2+ Psych Exam: Positive: Mental status NL, Mood NL, Memory Intact, Oriented x 3; Negative: Anxiety Assessment/Plan Assessment Patient has continued pain in his incisions postoperatively. Patient has been slow to be able to ambulate due to his pain. Plan Patient will continue with aggressive pain management. Patient will continue to work with physical therapy and once cleared by physical therapy will be discharged home. Pradeep Jefferson MD May 05, 2018 20:52
[2018-05-05 22:00] VITALS: BP 146/74
[2018-05-06] VITALS (7 sets, daily range): BP systolic 120–145; BP diastolic 61–76
[2018-05-06] MEDS: SENOKOT S TAB PO SCH ×2 (09:37→20:59)
[2018-05-06] MEDS: DOCUSATE SODIUM 100 MG CAP PO SCH ×2 (09:37→20:59)
[2018-05-06] MEDS: NS 1,000 ML IV SCH (13:29)
[2018-05-06] MEDS: MORPHINE 1MG/ML IN 0.9% NACL 100ML IV BAG IV PRN (14:00)
[2018-05-07] MEDS: MOM 30ML SUSPENSION UDC PO PRN ×2 (00:08→08:26)
[2018-05-07 00:11] LABS: CARDIOLIPIN IGA ANTIBODY <9 APL U/mL (0-11); CARDIOLIPIN IGG ANTIBODY <9 GPL U/mL (0-14); CARDIOLIPIN IGM ANTIBODY <9 MPL U/mL (0-12); HOMOCYST(E)INE SERUM 7.8 umol/L (0.0-15.0)
[2018-05-07 02:00] VITALS: BP 131/66
[2018-05-07] MEDS: NS 1,000 ML IV SCH (02:24)
[2018-05-07 06:00] VITALS: BP 139/91
[2018-05-07] MEDS: SENOKOT S TAB PO SCH ×2 (08:26→20:52)
[2018-05-07] MEDS: DOCUSATE SODIUM 100 MG CAP PO SCH ×2 (08:26→20:52)
[2018-05-07 10:00] VITALS: BP 140/67
[2018-05-07 10:58] LABS: ANTI-GLOMERULAR BASEMENT MEMB 3 units (0-20)
[2018-05-07 11:23] LABS: DRVV SCREEN 43.5 SEC
[2018-05-07 11:24] LABS: PTT LUPUS TYPE ANTICOAG SCREEN 1.1 (0-1.2)
[2018-05-07 14:00] VITALS: BP 141/67
[2018-05-07] MEDS: MORPHINE 1MG/ML IN 0.9% NACL 100ML IV BAG IV PRN (15:00)
[2018-05-07] MEDS: NORCO, ANEXSIA 5/325MG TABLET (HYDROcodone/ACETAMINOPHEN) PO PRN ×2 (16:40→20:51)
[2018-05-07 18:00] VITALS: BP 147/73
[2018-05-07 22:00] VITALS: BP 138/77
[2018-05-08] MEDS: NORCO, ANEXSIA 5/325MG TABLET (HYDROcodone/ACETAMINOPHEN) PO PRN (00:39)
[2018-05-08] MEDS: PERCOCET 5MG/325MG TAB PO PRN ×6 (04:34→23:48)
[2018-05-08 06:00] VITALS: BP 132/68
[2018-05-08] MEDS: SENOKOT S TAB PO SCH ×2 (07:34→21:28)
[2018-05-08] MEDS: DOCUSATE SODIUM 100 MG CAP PO SCH ×2 (07:34→21:28)
[2018-05-08 10:57] LABS: ANTI THROMBIN 3 ANTIGEN IMMUNO 79 % (72-124); ANTI THROMBIN 3 FUNCT ACTIVITY 106 % (75-135); PROTEIN C ANTIGEN 85 % (60-150); PROTEIN S ANTIGEN FREE 83 % (57-157); PROTEIN S ANTIGEN TOTAL 69 % (60-150)
[2018-05-08 14:00] VITALS: BP 162/77
[2018-05-08 22:00] VITALS: BP 148/76
--- NOTE | 2018-05-08 23:44 | IPNPDOC ---
Subjective General Date/Time Seen The patient was seen on 05/08/18 at 23:43. Subject Chief Complaint/History The patient is a 22-year-old male admitted with a reason for visit of Claudication. Patient has significant improvement in his pain but continues to have difficulty ambulating secondary to the pain. Current Medications Current Medications Current Medications Acetaminophen/ Hydrocodone Bitart ([place], Anexsia 5/325) 1 tab Q4HP PRN PO MODERATE PAIN (PS 5-7) Last administered on 05/03/18at 18:01; Start 05/01/18 at 18:45; Stop 05/03/18 at 20:44; Status DC Acetaminophen/ Hydrocodone Bitart ([place], Anexsia 5/325) 2 tab Q4HP PRN PO SEVERE PAIN (PS 8-10) Last administered on 05/08/18at 00:39; Start 05/07/18 at 15:45; Stop 05/08/18 at 01:06; Status DC Acetaminophen/ Hydrocodone Bitart ([place], Anexsia 5/325) 2 tab Q4HP PRN PO SEVERE PAIN (PS 8-10) Last administered on 05/04/18at 12:06; Start 05/03/18 at 20:45; Stop 05/04/18 at 13:33; Status DC Bisacodyl (Dulcolax Suppository) 10 mg DAILYPRN PRN [place] CONSTIPATION; Start 05/01/18 at 18:45 Diphenhydramine HCl (Benadryl) 12.5 mg Q4HP PRN IV ITCHING; Start 05/04/18 at 13:30 Docusate Sodium (Colace) 100 mg BID PO Last administered on 05/07/18at 08:26; Start 05/01/18 at 21:00 Fentanyl Citrate (Sublimaze) 25 mcg Q5MP PRN IV MODERATE PAIN (PS 4-7) Last administered on 05/02/18at 23:50; Start 05/02/18 at 23:30; Stop 05/03/18 at 00:20; Status DC Heparin Sodium (Porcine) (Heparin) ASDIRECTED PRN IV SEE LABEL COMMENTS; Start 05/01/18 at 19:00; Stop 05/02/18 at 23:52; Status DC Heparin Sodium (Porcine) 48625 units/IV Miscellaneous Supplies 250 ml @ 0 mls/hr Q0M IV Last administered on 05/01/18at 21:07; Start 05/01/18 at 18:51; Stop 05/02/18 at 23:34; Status DC Hydromorphone HCl (Dilaudid) 0.5 mg Q15MP PRN IV MODERATE/SEVERE PAIN (PS 5-10) Last administered on 05/02/18at 23:58; Start 05/02/18 at 23:45; Stop 05/03/18 at 01:15; Status DC Lactated Ringer's 1,000 ml @ 100 mls/hr Q10H IV ; Start 05/02/18 at 23:30; Stop 05/03/18 at 01:00; Status DC Magnesium Hydroxide (Milk Of Magnesia) 30 ml DAILYPRN PRN PO CONSTIPATION Last administered on 05/07/18at 08:26; Start 05/01/18 at 18:45 Metoclopramide HCl (REGLAN INJection) 10 mg Q6HP PRN IV IF N/V OERSISTS IN RECOVERY Last administered on 05/03/18at 00:33; Start 05/03/18 at 00:30; Stop 05/03/18 at 01:30; Status DC Morphine Sulfate (Morphine Sulfate In 0.9%Nacl Iv Bag) 1 mg ASDIRECTED PRN IV SEE LABEL COMMENTS Last administered on 05/06/18at 14:00; Start 05/04/18 at 13:30; Stop 05/07/18 at 15:44; Status DC Morphine Sulfate (Morphine Sulfate Inj) 2 mg Q30MP PRN IV SEVERE PAIN (PS 8-10) Last administered on 05/04/18at 12:34; Start 05/03/18 at 01:15; Stop 05/04/18 at 13:33; Status DC Nalbuphine HCl (Nubain) 2.5 mg Q6HP PRN IV PRURITIS; Start 05/04/18 at 13:30; Stop 05/11/18 at 13:29 Naloxone HCl (Narcan) 0.1 mg Q5MP PRN IV SEE LABEL COMMENTS; Start 05/04/18 at 13:30 Non-Formulary Medication (Epidural/INTERNAL COMMUNICATIONS INTERN [place]) USE THIS ENTRY TO VEND ... Q1M PRN XX SEE LABEL COMMENTS; Start 05/04/18 at 13:30; Status Cancel Non-Formulary Medication (Heparin Iv Rate Change Documentation ml/ Hr) ASDIRECTED XX ; Start 05/01/18 at 19:00; Stop 05/02/18 at 23:51; Status DC Ondansetron HCl (ZOFRAN INJection) 4 mg Q6HP PRN IV NAUSEA; Start 05/04/18 at 13:30 Ondansetron HCl (ZOFRAN INJection) 4 mg Q6HP PRN IV NAUSEA OR VOMITING Last administered on 05/03/18at 01:23; Start 05/03/18 at 01:15 Oxycodone/ Acetaminophen (Percocet 5mg/ 325mg Tablet) 1 tab ASDIRECTED PRN PO MILD/MODERATE PAIN (PS 1-7) Last administered on 05/03/18at 00:09; Start 05/02/18 at 23:30; Stop 05/03/18 at 01:00; Status DC Oxycodone/ Acetaminophen (Percocet 5mg/ 325mg Tablet) 1 tab Q2HP PRN PO MILD/MODERATE PAIN (PS 1-7); Start 05/08/18 at 23:00 Oxycodone/ Acetaminophen (Percocet 5mg/ 325mg Tablet) 2 tab Q4HP PRN PO SEVERE PAIN (PS 8-10) Last administered on 05/08/18at 21:28; Start 05/08/18 at 01:15 Senna/Docusate Sodium (Senokot S) 1 tab BID PO Last administered on 05/07/18at 08:26; Start 05/01/18 at 21:00 Sodium Chloride 1,000 ml @ 15 mls/hr Q24H IV Last administered on 05/07/18at 02:24; Start 05/04/18 at 13:29; Stop 05/07/18 at 15:44; Status DC Allergies Coded Allergies: No Known Allergies (Unverified , 04/22/18) VITAL SIGNS VITAL SIGNS Vital Signs Date Time Temp Pulse Resp B/P (MAP) Pulse Ox O2 Delivery O2 Flow Rate FiO2 05/08/18 21:28 19 05/08/18 17:13 18 05/08/18 16:43 17 05/08/18 14:00 96.5 88 17 162/77 (105) 100 05/08/18 12:51 18 05/08/18 08:48 18 05/08/18 06:00 98.9 70 17 132/68 (89) 98 05/08/18 04:34 18 05/08/18 00:39 18 Intake & Output 05/08/18 06:00 Intake Total 3160 ml Output Total 4200 ml Balance -1040 ml Current Medications Medications (Trade) Dose Ordered Sig/Izabela Route PRN Reason Start Time Stop Time Status Last Admin Dose Admin Docusate Sodium (Colace) 100 mg BID PO 05/01/18 21:00 05/07/18 08:26 Magnesium Hydroxide (Milk Of Magnesia) 30 ml DAILYPRN PRN PO CONSTIPATION 05/01/18 18:45 05/07/18 08:26 Ondansetron HCl (ZOFRAN INJection) 4 mg Q6HP PRN IV NAUSEA OR VOMITING 05/03/18 01:15 05/03/18 01:23 Oxycodone/ Acetaminophen (Percocet 5mg/ 325mg Tablet) 2 tab Q4HP PRN PO SEVERE PAIN (PS 8-10) 05/08/18 01:15 05/08/18 21:28 Senna/Docusate Sodium (Senokot S) 1 tab BID PO 05/01/18 21:00 05/07/18 08:26 Objective Physical Examination General Exam: Positive: Alert, Cooperative, Mild Distress Eye Exam: Positive: PERRLA, Conjunctiva & lids normal, EOMI ENT Exam: Positive: Atraumatic, Mucous membr. moist/pink, Pharynx Normal, Tongue Midline, Pharyngeal Edema, Nares Patent, Ext Auditory Canal Nml, Pinna Normal Neck Exam: Positive: Supple, +2 carotid pulse wo bruit; Negative: JVD, thyromegaly, Lymphadenopathy Chest Exam: Positive: Clear to auscultation, Normal air movement; Negative: Rales, Rhonchi, Wheezing, Diminished Heart Exam: Positive: Rate Normal; Negative: Tachycardic, Bradycardic, Regular Rhythm, Irregular Rhythm, Gallops, Murmurs, Rubs Telemetry: Positive: No significant arrhythmia, Sinus Abdomen Exam: Positive: Normal bowel sounds, Soft; Negative: BS Hyperactive, BS Hypoactive, Tenderness, Hepatospenomegaly, Mass, Hernia Male Exam: Positive: Normal Genital Exam Extremity Exam: Positive: Normal pulses (patient with nonpalpable popliteal dorsalis pedis and posterior tibial pulses in the right lower extremity. The pulses in the right lower extremity are obtainable with continuous wave Doppler ultrasound and are monophasic.); Negative: Clubbing, Cyanosis, Edema, Tenderness, Swelling Skin Exam: Positive: Nl turgor and temperature; Negative: Rash, Breakdown, Lesion, Pruritus Neuro Exam: Positive: Normal Gait, Normal Speech, Strength at 5/5 X4 ext, Normal Tone, Sensation Intact, Cranial Nerves 3-12 NL, Reflexes 2+ Psych Exam: Positive: Mental status NL, Mood NL, Memory Intact, Oriented x 3; Negative: Anxiety Assessment/Plan Assessment Patient is status post attempted revascularization of the right lower extremity. Patient will continue with oral pain medication. Patient will continue to work with physical therapy. Plan Patient will continue to work with physical therapy and once cleared will be discharged home. Patient was again counseled on the need to stop tobacco use and start an aggressive exercise program once discharged as well as patient being discharged on Plavix and cilostazol. Pradeep Jefferson MD May 08, 2018 23:44
[2018-05-09 02:00] VITALS: BP 135/79
[2018-05-09] MEDS: PERCOCET 5MG/325MG TAB PO PRN ×10 (02:32→22:28)
[2018-05-09 06:00] VITALS: BP 139/78
[2018-05-09] MEDS: DOCUSATE SODIUM 100 MG CAP PO SCH ×2 (07:35→20:26)
[2018-05-09] MEDS: SENOKOT S TAB PO SCH ×2 (07:36→20:26)
[2018-05-09 10:00] VITALS: BP 141/62
[2018-05-09 14:00] VITALS: BP 127/58
[2018-05-09 22:00] VITALS: BP 147/91
[2018-05-10 00:07] LABS: ANCA-ATYPICAL <1:20 titer (Neg:<1:20); ANTINUCLEAR ANTIBODIES DIRECT Negative (Negative); CYTOPLASMIC NEUTROP AB ANCA-C <1:20 titer (Neg:<1:20); PERINUCLEAR AB ANCA-P <1:20 titer (Neg:<1:20); SJOGREN'S ANTI SS-A <0.2 AI (0.0-0.9); SJOGREN'S ANTI SS-B <0.2 AI (0.0-0.9)
[2018-05-10] MEDS: PERCOCET 5MG/325MG TAB PO PRN ×10 (01:05→23:21)
[2018-05-10 02:00] VITALS: BP 161/76
[2018-05-10 06:00] VITALS: BP 135/77
[2018-05-10] MEDS: SENOKOT S TAB PO SCH ×2 (09:00→20:00)
[2018-05-10] MEDS: DOCUSATE SODIUM 100 MG CAP PO SCH ×2 (10:33→20:00)
[2018-05-10 14:00] VITALS: BP 137/78
--- NOTE | 2018-05-10 19:42 | IPNPDOC ---
Subjective General Date/Time Seen The patient was seen on 05/10/18 at 19:41. Subject Chief Complaint/History The patient is a 22-year-old male admitted with a reason for visit of Claudication. Patient has some improvement in his pain. Patient is able to ambulate better. Current Medications Current Medications Current Medications Acetaminophen/ Hydrocodone Bitart ([place], Anexsia 5/325) 1 tab Q4HP PRN PO MODERATE PAIN (PS 5-7) Last administered on 05/03/18at 18:01; Start 05/01/18 at 18:45; Stop 05/03/18 at 20:44; Status DC Acetaminophen/ Hydrocodone Bitart ([place], Anexsia 5/325) 2 tab Q4HP PRN PO SEVERE PAIN (PS 8-10) Last administered on 05/08/18at 00:39; Start 05/07/18 at 15:45; Stop 05/08/18 at 01:06; Status DC Acetaminophen/ Hydrocodone Bitart ([place], Anexs[place] 5/325) 2 tab Q4HP PRN PO SEVERE PAIN (PS 8-10) Last administered on 05/04/18at 12:06; Start 05/03/18 at 20:45; Stop 05/04/18 at 13:33; Status DC Bisacodyl (Dulcolax Suppository) 10 mg DAILYPRN PRN [place] CONSTIPATION; Start 05/01/18 at 18:45 Diphenhydramine HCl (Benadryl) 12.5 mg Q4HP PRN IV ITCHING; Start 05/04/18 at 13:30 Docusate Sodium (Colace) 100 mg BID PO Last administered on 05/10/18at 10:33; Start 05/01/18 at 21:00 Fentanyl Citrate (Sublimaze) 25 mcg Q5MP PRN IV MODERATE PAIN (PS 4-7) Last administered on 05/02/18at 23:50; Start 05/02/18 at 23:30; Stop 05/03/18 at 00:20; Status DC Heparin Sodium (Porcine) (Heparin) ASDIRECTED PRN IV SEE LABEL COMMENTS; Start 05/01/18 at 19:00; Stop 05/02/18 at 23:52; Status DC Heparin Sodium (Porcine) 73871 units/IV Miscellaneous Supplies 250 ml @ 0 mls/hr Q0M IV Last administered on 05/01/18at 21:07; Start 05/01/18 at 18:51; Stop 05/02/18 at 23:34; Status DC Hydromorphone HCl (Dilaudid) 0.5 mg Q15MP PRN IV MODERATE/SEVERE PAIN (PS 5-10) Last administered on 05/02/18at 23:58; Start 05/02/18 at 23:45; Stop 05/03/18 at 01:15; Status DC Lactated Ringer's 1,000 ml @ 100 mls/hr Q10H IV ; Start 05/02/18 at 23:30; Stop 05/03/18 at 01:00; Status DC Magnesium Hydroxide (Milk Of Magnesia) 30 ml DAILYPRN PRN PO CONSTIPATION Last administered on 05/07/18at 08:26; Start 05/01/18 at 18:45 Metoclopramide HCl (REGLAN INJection) 10 mg Q6HP PRN IV IF N/V OERSISTS IN RECOVERY Last administered on 05/03/18at 00:33; Start 05/03/18 at 00:30; Stop 05/03/18 at 01:30; Status DC Morphine Sulfate (Morphine Sulfate In 0.9%Nacl Iv Bag) 1 mg ASDIRECTED PRN IV SEE LABEL COMMENTS Last administered on 05/06/18at 14:00; Start 05/04/18 at 13:30; Stop 05/07/18 at 15:44; Status DC Morphine Sulfate (Morphine Sulfate Inj) 2 mg Q30MP PRN IV SEVERE PAIN (PS 8-10) Last administered on 05/04/18at 12:34; Start 05/03/18 at 01:15; Stop 05/04/18 at 13:33; Status DC Nalbuphine HCl (Nubain) 2.5 mg Q6HP PRN IV PRURITIS; Start 05/04/18 at 13:30; Stop 05/11/18 at 13:29 Naloxone HCl (Narcan) 0.1 mg Q5MP PRN IV SEE LABEL COMMENTS; Start 05/04/18 at 13:30 Non-Formulary Medication (Epidural/PHOTOENGRAVING PROOFER [place]) USE THIS ENTRY TO VEND ... Q1M PRN XX SEE LABEL COMMENTS; Start 05/04/18 at 13:30; Status Cancel Non-Formulary Medication (Heparin Iv Rate Change Documentation ml/ Hr) ASD IRECTED XX ; Start 05/01/18 at 19:00; Stop 05/02/18 at 23:51; Status DC Ondansetron HCl (ZOFRAN INJection) 4 mg Q6HP PRN IV NAUSEA; Start 05/04/18 at 13:30 Ondansetron HCl (ZOFRAN INJection) 4 mg Q6HP PRN IV NAUSEA OR VOMITING Last administered on 05/03/18at 01:23; Start 05/03/18 at 01:15 Oxycodone/ Acetaminophen (Percocet 5mg/ 325mg Tablet) 1 tab ASDIRECTED PRN PO MILD/MODERATE PAIN (PS 1-7) Last administered on 05/03/18at 00:09; Start 05/02/18 at 23:30; Stop 05/03/18 at 01:00; Status DC Oxycodone/ Acetaminophen (Percocet 5mg/ 325mg Tablet) 1 tab Q2HP PRN PO MILD/MODERATE PAIN (PS 1-7) Last administered on 05/10/18at 18:00; Start 05/08/18 at 23:00 Oxycodone/ Acetaminophen (Percocet 5mg/ 325mg Tablet) 2 tab Q4HP PRN PO SEVERE PAIN (PS 8-10) Last administered on 05/08/18at 21:28; Start 05/08/18 at 01:15 Senna/Docusate Sodium (Senokot S) 1 tab BID PO Last administered on 05/07/18 08:26; Start 05/01/18 at 21:00 Sodium Chloride 1,000 ml @ 15 mls/hr Q24H IV Last administered on 05/07/18at 02:24; Start 05/04/18 at 13:29; Stop 05/07/18 at 15:44; Status DC Allergies Coded Allergies: No Known Allergies (Unverified , 04/22/18) VITAL SIGNS VITAL SIGNS Vital Signs Date Time Temp Pulse Resp B/P (MAP) Pulse Ox O2 Delivery O2 Flow Rate FiO2 05/10/18 18:00 16 05/10/18 16:41 16 05/10/18 16:11 16 05/10/18 14:00 97.9 87 18 137/78 (97) 100 05/10/18 10:44 16 05/10/18 08:51 16 05/10/18 06:10 18 05/10/18 06:00 98.6 86 20 135/77 (96) 98 05/10/18 03:19 18 05/10/18 02:00 98.7 94 20 161/76 (104) 100 05/10/18 01:05 18 05/09/18 22:28 18 05/09/18 22:00 98.5 103 18 147/91 (109) 100 Intake & Output 05/10/18 06:00 Intake Total 2740 ml Output Total 2325 ml Balance 415 ml Current Medications Medications (Trade) Dose Ordered Sig/Izabel[place] Route PRN Reason Start Time Stop Time Status Last Admin Dose Admin Docusate Sodium (Colace) 100 mg BID PO 05/01/18 21:00 05/10/18 10:33 Magnesium Hydroxide (Milk Of Magnesia) 30 ml DAILYPRN PRN PO CONSTIPATION 05/01/18 18:45 05/07/18 08:26 Ondansetron HCl (ZOFRAN INJection) 4 mg Q6HP PRN IV NAUSEA OR VOMITING 05/03/18 01:15 05/03/18 01:23 Oxycodone/ Acetaminophen (Percocet 5mg/ 325mg Tablet) 1 tab Q2HP PRN PO MILD/MODERATE PAIN (PS 1-7) 05/08/18 23:00 05/10/18 18:00 Senna/Docusate Sodium (Senokot S) 1 tab BID PO 05/01/18 21:00 05/07/18 08:26 Objective Physical Examination General Exam: Positive: Alert, Cooperative, Mild Distress Eye Exam: Positive: PERRLA, Conjunctiva & lids normal, EOMI ENT Exam: Positive: Atraumatic, Mucous membr. moist/pink, Pharynx Normal, Tongue Midline, Pharyngeal Edema, Nares Patent, Ext Auditory Canal Nml, Pinna Normal Neck Exam: Positive: Supple, +2 carotid pulse wo bruit; Negative: JVD, thyromegaly, Lymphadenopathy Chest Exam: Positive: Clear to auscultation, Normal air movement; Negative: Rales, Rhonchi, Wheezing, Diminished Heart Exam: Positive: Rate Normal; Negative: Tachycardic, Bradycardic, Regular Rhythm, Irregular Rhythm, Gallops, Murmurs, Rubs Telemetry: Positive: No significant arrhythmia, Sinus Abdomen Exam: Positive: Normal bowel sounds, Soft; Negative: BS Hyperactive, BS Hypoactive, Tenderness, Hepatospenomegaly, Mass, Hernia Male Exam: Positive: Normal Genital Exam Extremity Exam: Positive: Normal pulses (patient with nonpalpable popliteal dorsalis pedis and posterior tibial pulses in the right lower extremity. The pulses in the right lower extremity are obtainable with continuous wave Doppler ultrasound and are monophasic.); Negative: Clubbing, Cyanosis, Edema, Tenderness, Swelling Skin Exam: Positive: Nl turgor and temperature; Negative: Rash, Breakdown, Lesion, Pruritus Neuro Exam: Positive: Normal Gait, Normal Speech, Strength at 5/5 X4 ext, Normal Tone, Sensation Intact, Cranial Nerves 3-12 NL, Reflexes 2+ Psych Exam: Positive: Mental status NL, Mood NL, Memory Intact, Oriented x 3; Negative: Anxiety Assessment/Plan Assessment Patient is improving albeit slowly. Patient's pain is better controlled. Plan Patient is slowly improving and we'll continue to work with physical therapy and been discharged home once cleared by physical therapy. Pradeep Jefferson MD May 10, 2018 19:42
[2018-05-10 22:00] VITALS: BP 149/72
[2018-05-11] MEDS: PERCOCET 5MG/325MG TAB PO PRN ×9 (01:31→23:51)
[2018-05-11 06:00] VITALS: BP 138/64
[2018-05-11] MEDS: DOCUSATE SODIUM 100 MG CAP PO SCH ×2 (09:00→20:00)
[2018-05-11] MEDS: SENOKOT S TAB PO SCH ×2 (09:00→20:00)
[2018-05-11 14:00] VITALS: BP 140/75
[2018-05-11 22:00] VITALS: BP 145/87
[2018-05-12] MEDS: PERCOCET 5MG/325MG TAB PO PRN ×6 (02:36→21:23)
[2018-05-12 06:00] VITALS: BP 139/74
[2018-05-12] MEDS: SENOKOT S TAB PO SCH ×2 (09:47→21:21)
[2018-05-12] MEDS: DOCUSATE SODIUM 100 MG CAP PO SCH ×2 (09:47→21:21)
[2018-05-12 14:00] VITALS: BP 138/78
[2018-05-12 22:00] VITALS: BP 138/77
[2018-05-13] MEDS: PERCOCET 5MG/325MG TAB PO PRN ×8 (01:41→23:36)
[2018-05-13 06:00] VITALS: BP 141/85
[2018-05-13] MEDS: SENOKOT S TAB PO SCH ×2 (08:19→21:25)
[2018-05-13] MEDS: DOCUSATE SODIUM 100 MG CAP PO SCH ×2 (08:19→21:25)
[2018-05-13 14:00] VITALS: BP 137/66
[2018-05-13 20:00] VITALS: BP 144/77
[2018-05-14] MEDS: PERCOCET 5MG/325MG TAB PO PRN ×5 (03:56→22:48)
[2018-05-14 06:00] VITALS: BP 128/71
[2018-05-14] MEDS: SENOKOT S TAB PO SCH ×2 (08:38→21:28)
[2018-05-14] MEDS: DOCUSATE SODIUM 100 MG CAP PO SCH ×2 (08:38→21:29)
[2018-05-14 14:00] VITALS: BP 144/90
--- NOTE | 2018-05-14 20:32 | IPNPDOC ---
Subjective General Date/Time Seen The patient was seen on 05/14/18 at 20:31. Subject Chief Complaint/History The patient is a 22-year-old male admitted with a reason for visit of Claudication. Patient's pain is improving and controlled better. Current Medications Current Medications Current Medications Acetaminophen/ Hydrocodone Bitart ([place], Anexsia 5/325) 1 tab Q4HP PRN PO MODERATE PAIN (PS 5-7) Last administered on 05/03/18at 18:01; Start 05/01/18 at 18:45; Stop 05/03/18 at 20:44; Status DC Acetaminophen/ Hydrocodone Bitart ([place], Anexsia 5/325) 2 tab Q4HP PRN PO SEVERE PAIN (PS 8-10) Last administered on 05/08/18at 00:39; Start 05/07/18 at 15:45; Stop 05/08/18 at 01:06; Status DC Acetaminophen/ Hydrocodone Bitart ([place], Anexsia 5/325) 2 tab Q4HP PRN PO SEVERE PAIN (PS 8-10) Last administered on 05/04/18at 12:06; Start 05/03/18 at 20:45; Stop 05/04/18 at 13:33; Status DC Bisacodyl (Dulcolax Suppository) 10 mg DAILYPRN PRN [place] CONSTIPATION; Start 05/01/18 at 18:45 Diphenhydramine HCl (Benadryl) 12.5 mg Q4HP PRN IV ITCHING; Start 05/04/18 at 13:30 Docusate Sodium (Colace) 100 mg BID PO Last administered on 05/14/18at 08:38; Start 05/01/18 at 21:00 Fentanyl Citrate (Sublimaze) 25 mcg Q5MP PRN IV MODERATE PAIN (PS 4-7) Last administered on 05/02/18at 23:50; Start 05/02/18 at 23:30; Stop 05/03/18 at 00:20; Status DC Heparin Sodium (Porcine) (Heparin) ASDIRECTED PRN IV SEE LABEL COMMENTS; Start 05/01/18 at 19:00; Stop 05/02/18 at 23:52; Status DC Heparin Sodium (Porcine) 53849 units/IV Miscellaneous Supplies 250 ml @ 0 mls/hr Q0M IV Last administered on 05/01/18at 21:07; Start 05/01/18 at 18:51; Stop 05/02/18 at 23:34; Status DC Hydromorphone HCl (Dilaudid) 0.5 mg Q15MP PRN IV MODERATE/SEVERE PAIN (PS 5-10) Last administered on 05/02/18at 23:58; Start 05/02/18 at 23:45; Stop 05/03/18 at 01:15; Status DC Lactated Ringer's 1,000 ml @ 100 mls/hr Q10H IV ; Start 05/02/18 at 23:30; Stop 05/03/18 at 01:00; Status DC Magnesium Hydroxide (Milk Of Magnesia) 30 ml DAILYPRN PRN PO CONSTIPATION Last administered on 05/07/18at 08:26; Start 05/01/18 at 18:45 Metoclopramide HCl (REGLAN INJection) 10 mg Q6HP PRN IV IF N/V OERSISTS IN RECOVERY Last administered on 05/03/18at 00:33; Start 05/03/18 at 00:30; Stop 05/03/18 at 01:30; Status DC Morphine Sulfate (Morphine Sulfate In 0.9%Nacl Iv Bag) 1 mg ASDIRECTED PRN IV SEE LABEL COMMENTS Last administered on 05/06/18at 14:00; Start 05/04/18 at 13:30; Stop 05/07/18 at 15:44; Status DC Morphine Sulfate (Morphine Sulfate Inj) 2 mg Q30MP PRN IV SEVERE PAIN (PS 8-10) Last administered on 05/04/18at 12:34; Start 05/03/18 at 01:15; Stop 05/04/18 at 13:33; Status DC Nalbuphine HCl (Nubain) 2.5 mg Q6HP PRN IV PRURITIS; Start 05/04/18 at 13:30; Stop 05/11/18 at 13:29; Status DC Naloxone HCl (Narcan) 0.1 mg Q5MP PRN IV SEE LABEL COMMENTS; Start 05/04/18 at 13:30 Non-Formulary Medication (Epidural/DIRECTOR OF HEALTH CARE MARKETING [place]) USE THIS ENTRY TO VEND ... Q1M PRN XX SEE LABEL COMMENTS; Start 05/04/18 at 13:30; Status Cancel Non-Formulary Medication (Heparin Iv Rate Change Documentation ml/ Hr) ASDIRECTED XX ; Start 05/01/18 at 19:00; Stop 05/02/18 at 23:51; Status DC Ondansetron HCl (ZOFRAN INJection) 4 mg Q6HP PRN IV NAUSEA; Start 05/04/18 at 13:30 Ondansetron HCl (ZOFRAN INJection) 4 mg Q6HP PRN IV NAUSEA OR VOMITING Last administered on 05/03/18 01:23; Start 05/03/18 at 01:15 Oxycodone/ Acetaminophen (Percocet 5mg/ 325mg Tablet) 1 tab ASDIRECTED PRN PO MILD/MODERATE PAIN (PS 1-7) Last administered on 05/03/18 00:09; Start 05/02/18 at 23:30; Stop 05/03/18 at 01:00; Status DC Oxycodone/ Acetaminophen (Percocet 5mg/ 325mg Tablet) 1 tab Q2HP PRN PO MILD/MODERATE PAIN (PS 1-7) Last administered on 05/14/18at 16:56; Start 05/08/18 at 23:00 Oxycodone/ Acetaminophen (Percocet 5mg/ 325mg Tablet) 2 tab Q4HP PRN PO SEVERE PAIN (PS 8-10) Last administered on 05/14/18 08:40; Start 05/08/18 at 01:15 Senna/Docusate Sodium (Senokot S) 1 tab BID PO Last administered on 05/14/18 08:38; Start 05/01/18 at 21:00 Sodium Chloride 1,000 ml @ 15 mls/hr Q24H IV Last administered on 05/07/18 02:24; Start 05/04/18 at 13:29; Stop 05/07/18 at 15:44; Status DC Allergies Coded Allergies: No Known Allergies (Unverified , 04/22/18) VITAL SIGNS VITAL SIGNS Microbiology 05/12/18 Stool Occult Blood (BELEM) - Final, Complete Vital Signs Date Time Temp Pulse Resp B/P (MAP) Pulse Ox O2 Delivery O2 Flow Rate FiO2 05/14/18 17:32 20 05/14/18 16:56 20 05/14/18 14:22 20 05/14/18 14:00 97.8 85 16 144/90 (108) 99 05/14/18 09:18 20 05/14/18 08:40 20 05/14/18 06:00 97.1 87 18 128/71 (90) 100 05/14/18 03:56 18 05/13/18 23:36 18 05/13/18 21:25 18 Intake & Output 05/14/18 06:00 Intake Total 2130 ml Output Total 1650 ml Balance 480 ml Microbiology 05/12/18 Stool Occult Blood (EBLEM) - Final, Complete Current Medications Medications (Trade) Dose Ordered Sig/Izabela Route PRN Reason Start Time Stop Time Status Last Admin Dose Admin Docusate Sodium (Colace) 100 mg BID PO 05/01/18 21:00 05/14/18 08:38 Magnesium Hydroxide (Milk Of Magnesia) 30 ml DAILYPRN PRN PO CONSTIPATION 05/01/18 18:45 05/07/18 08:26 Ondansetron HCl (ZOFRAN INJection) 4 mg Q6HP PRN IV NAUSEA OR VOMITING 05/03/18 01:15 05/03/18 01:23 Oxycodone/ Acetaminophen (Percocet 5mg/ 325mg Tablet) 1 tab Q2HP PRN PO MILD/MODERATE PAIN (PS 1-7) 05/08/18 23:00 05/14/18 16:56 Senna/Docusate Sodium (Senokot S) 1 tab BID PO 05/01/18 21:00 05/14/18 08:38 Objective Physical Examination General Exam: Positive: Alert, Cooperative, Mild Distress Eye Exam: Positive: PERRLA, Conjunctiva & lids normal, EOMI ENT Exam: Positive: Atraumatic, Mucous membr. moist/pink, Pharynx Normal, Tongue Midline, Pharyngeal Edema, Nares Patent, Ext Auditory Canal Nml, Pinna Normal Neck Exam: Positive: Supple, +2 carotid pulse wo bruit; Negative: JVD, thyromegaly, Lymphadenopathy Chest Exam: Positive: Clear to auscultation, Normal air movement; Negative: Rales, Rhonchi, Wheezing, Diminished Heart Exam: Positive: Rate Normal; Negative: Tachycardic, Bradycardic, Regular Rhythm, Irregular Rhythm, Gallops, Murmurs, Rubs Telemetry: Positive: No significant arrhythmia, Sinus Abdomen Exam: Positive: Normal bowel sounds, Soft; Negative: BS Hyperactive, BS Hypoactive, Tenderness, Hepatospenomegaly, Mass, Hernia Male Exam: Positive: Normal Genital Exam Extremity Exam: Positive: Normal pulses (patient with nonpalpable popliteal dorsalis pedis and posterior tibial pulses in the right lower extremity. The pulses in the right lower extremity are obtainable with continuous wave Doppler ultrasound and are monophasic.); Negative: Clubbing, Cyanosis, Edema, Tenderness, Swelling Skin Exam: Positive: Nl turgor and temperature; Negative: Rash, Breakdown, Lesion, Pruritus Neuro Exam: Positive: Normal Gait, Normal Speech, Strength at 5/5 X4 ext, Normal Tone, Sensation Intact, Cranial Nerves 3-12 NL, Reflexes 2+ Psych Exam: Positive: Mental status NL, Mood NL, Memory Intact, Oriented x 3; Negative: Anxiety Assessment/Plan Assessment Patient is improving slowly. Patient continues to ambulate better with decreasing pain. Plan Patient is improving and continuing to work with physical therapy and will be discharged home once cleared by physical therapy. Pradeep Jefferson MD May 14, 2018 20:32
[2018-05-14 22:00] VITALS: BP 140/77
[2018-05-15] MEDS: PERCOCET 5MG/325MG TAB PO PRN ×5 (03:03→20:32)
[2018-05-15 06:00] VITALS: BP 150/70
[2018-05-15] MEDS: SENOKOT S TAB PO SCH ×2 (09:00→20:31)
[2018-05-15] MEDS: DOCUSATE SODIUM 100 MG CAP PO SCH ×2 (09:00→20:31)
[2018-05-15 14:00] VITALS: BP 131/82
--- NOTE | 2018-05-15 20:29 | IPNPDOC ---
Subjective General Date/Time Seen The patient was seen on 05/15/18 at 20:28. Subject Chief Complaint/History The patient is a 22-year-old male admitted with a reason for visit of Claudication. Patient has no new complaints and states his pain is controlled well. Current Medications Current Medications Current Medications Acetaminophen/ Hydrocodone Bitart ([place], Anexsia 5/325) 1 tab Q4HP PRN PO MODERATE PAIN (PS 5-7) Last administered on 05/03/18at 18:01; Start 05/01/18 at 18:45; Stop 05/03/18 at 20:44; Status DC Acetaminophen/ Hydrocodone Bitart ([place], Anexsia 5/325) 2 tab Q4HP PRN PO SEVERE PAIN (PS 8-10) Last administered on 05/08/18at 00:39; Start 05/07/18 at 15:45; Stop 05/08/18 at 01:06; Status DC Acetaminophen/ Hydrocodone Bitart ([place], Anexsia 5/325) 2 tab Q4HP PRN PO SEVERE PAIN (PS 8-10) Last administered on 05/04/18at 12:06; Start 05/03/18 at 20:45; Stop 05/04/18 at 13:33; Status DC Bisacodyl (Dulcolax Suppository) 10 mg DAILYPRN PRN [place] CONSTIPATION; Start 05/01/18 at 18:45 Diphenhydramine HCl (Benadryl) 12.5 mg Q4HP PRN IV ITCHING; Start 05/04/18 at 13:30 Docusate Sodium (Colace) 100 mg BID PO Last administered on 05/14/18at 21:29; Start 05/01/18 at 21:00 Fentanyl Citrate (Sublimaze) 25 mcg Q5MP PRN IV MODERATE PAIN (PS 4-7) Last administered on 05/02/18at 23:50; Start 05/02/18 at 23:30; Stop 05/03/18 at 00:20; Status DC Heparin Sodium (Porcine) (Heparin) ASDIRECTED PRN IV SEE LABEL COMMENTS; Start 05/01/18 at 19:00; Stop 05/02/18 at 23:52; Status DC Heparin Sodium (Porcine) 26182 units/IV Miscellaneous Supplies 250 ml @ 0 mls/hr Q0M IV Last administered on 05/01/18at 21:07; Start 05/01/18 at 18:51; Stop 05/02/18 at 23:34; Status DC Hydromorphone HCl (Dilaudid) 0.5 mg Q15MP PRN IV MODERATE/SEVERE PAIN (PS 5-10) Last administered on 05/02/18at 23:58; Start 05/02/18 at 23:45; Stop 05/03/18 at 01:15; Status DC Lactated Ringer's 1,000 ml @ 100 mls/hr Q10H IV ; Start 05/02/18 at 23:30; Stop 05/03/18 at 01:00; Status DC Magnesium Hydroxide (Milk Of Magnesia) 30 ml DAILYPRN PRN PO CONSTIPATION Last administered on 05/07/18at 08:26; Start 05/01/18 at 18:45 Metoclopramide HCl (REGLAN INJection) 10 mg Q6HP PRN IV IF N/V OERSISTS IN RECOVERY Last administered on 05/03/18at 00:33; Start 05/03/18 at 00:30; Stop 05/03/18 at 01:30; Status DC Morphine Sulfate (Morphine Sulfate In 0.9%Nacl Iv Bag) 1 mg ASDIRECTED PRN IV SEE LABEL COMMENTS Last administered on 05/06/18at 14:00; Start 05/04/18 at 13:30; Stop 05/07/18 at 15:44; Status DC Morphine Sulfate (Morphine Sulfate Inj) 2 mg Q30MP PRN IV SEVERE PAIN (PS 8-10) Last administered on 05/04/18at 12:34; Start 05/03/18 at 01:15; Stop 05/04/18 at 13:33; Status DC Nalbuphine HCl (Nubain) 2.5 mg Q6HP PRN IV PRURITIS; Start 05/04/18 at 13:30; Stop 05/11/18 at 13:29; Status DC Naloxone HCl (Narcan) 0.1 mg Q5MP PRN IV SEE LABEL COMMENTS; Start 05/04/18 at 13:30 Non-Formulary Medication (Epidural/POWDERED SUGAR PULVERIZER OPERATOR [place]) USE THIS ENTRY TO VEND ... Q1M PRN XX SEE LABEL COMMENTS; Start 05/04/18 at 13:30; Status Cancel Non-Formulary Medication (Heparin Iv Rate Change Documentation ml/ Hr) ASDIRECTED XX ; Start 05/01/18 at 19:00; Stop 05/02/18 at 23:51; Status DC Ondansetron HCl (ZOFRAN INJection) 4 mg Q6HP PRN IV NAUSEA; Start 05/04/18 at 13:30 Ondansetron HCl (ZOFRAN INJection) 4 mg Q6HP PRN IV NAUSEA OR VOMITING Last administered on 05/03/18at 01:23; Start 05/03/18 at 01:15 Oxycodone/ Acetaminophen (Percocet 5mg/ 325mg Tablet) 1 tab ASDIRECTED PRN PO MILD/MODERATE PAIN (PS 1-7) Last administered on 05/03/18at 00:09; Start 05/02/18 at 23:30; Stop 05/03/18 at 01:00; Status DC Oxycodone/ Acetaminophen (Percocet 5mg/ 325mg Tablet) 1 tab Q2HP PRN PO MILD/MODERATE PAIN (PS 1-7) Last administered on 05/14/18at 16:56; Start 05/08/18 at 23:00 Oxycodone/ Acetaminophen (Percocet 5mg/ 325mg Tablet) 2 tab Q4HP PRN PO SEVERE PAIN (PS 8-10) Last administered on 05/15/18at 16:33; Start 05/08/18 at 01:15 Senna/Docusate Sodium (Senokot S) 1 tab BID PO Last administered on 05/14/18at 21:28; Start 05/01/18 at 21:00 Sodium Chloride 1,000 ml @ 15 mls/hr Q24H IV Last administered on 05/07/18at 02:24; Start 05/04/18 at 13:29; Stop 05/07/18 at 15:44; Status DC Allergies Coded Allergies: No Known Allergies (Unverified , 04/22/18) VITAL SIGNS VITAL SIGNS Vital Signs Date Time Temp Pulse Resp B/P (MAP) Pulse Ox O2 Delivery O2 Flow Rate FiO2 05/15/18 17:03 18 05/15/18 16:33 18 05/15/18 14:00 96.9 94 18 131/82 (98) 100 05/15/18 11:40 18 05/15/18 07:04 18 05/15/18 06:00 98.3 75 18 150/70 (96) 100 05/15/18 03:03 18 05/14/18 22:48 18 05/14/18 22:00 99.3 91 20 140/77 (98) 100 Intake & Output 05/15/18 06:00 Intake Total 1460 ml Output Total 2050 ml Balance -590 ml Microbiology 05/12/18 Stool Occult Blood (BELEM) - Final, Complete Current Medications Medications (Trade) Dose Ordered Sig/Izabela Route PRN Reason Start Time Stop Time Status Last Admin Dose Admin Docusate Sodium (Colace) 100 mg BID PO 05/01/18 21:00 05/14/18 21:29 Magnesium Hydroxide (Milk Of Magnesia) 30 ml DAILYPRN PRN PO CONSTIPATION 05/01/18 18:45 05/07/18 08:26 Ondansetron HCl (ZOFRAN INJection) 4 mg Q6HP PRN IV NAUSEA OR VOMITING 05/03/18 01:15 05/03/18 01:23 Oxycodone/ Acetaminophen (Percocet 5mg/ 325mg Tablet) 1 tab Q2HP PRN PO MILD/MODERATE PAIN (PS 1-7) 05/08/18 23:00 05/14/18 16:56 Senna/Docusate Sodium (Senokot S) 1 tab BID PO 05/01/18 21:00 05/14/18 21:28 Microbiology 05/12/18 Stool Occult Blood (BELEM) - Final, Complete Objective Physical Examination General Exam: Positive: Alert, Cooperative, Mild Distress Eye Exam: Positive: PERRLA, Conjunctiva & lids normal, EOMI ENT Exam: Positive: Atraumatic, Mucous membr. moist/pink, Pharynx Normal, Tongue Midline, Pharyngeal Edema, Nares Patent, Ext Auditory Canal Nml, Pinna Normal Neck Exam: Positive: Supple, +2 carotid pulse wo bruit; Negative: JVD, thyromegaly, Lymphadenopathy Chest Exam: Positive: Clear to auscultation, Normal air movement; Negative: Rales, Rhonchi, Wheezing, Diminished Heart Exam: Positive: Rate Normal; Negative: Tachycardic, Bradycardic, Regular Rhythm, Irregular Rhythm, Gallops, Murmurs, Rubs Telemetry: Positive: No significant arrhythmia, Sinus Abdomen Exam: Positive: Normal bowel sounds, Soft; Negative: BS Hyperactive, BS Hypoactive, Tenderness, Hepatospenomegaly, Mass, Hernia Male Exam: Positive: Normal Genital Exam Extremity Exam: Positive: Normal pulses (patient with nonpalpable popliteal dorsalis pedis and posterior tibial pulses in the right lower extremity. The pulses in the right lower extremity are obtainable with continuous wave Doppler ultrasound and are monophasic.); Negative: Clubbing, Cyanosis, Edema, Tenderness, Swelling Skin Exam: Positive: Nl turgor and temperature; Negative: Rash, Breakdown, Lesion, Pruritus Neuro Exam: Positive: Normal Gait, Normal Speech, Strength at 5/5 X4 ext, Normal Tone, Sensation Intact, Cranial Nerves 3-12 NL, Reflexes 2+ Psych Exam: Positive: Mental status NL, Mood NL, Memory Intact, Oriented x 3; Negative: Anxiety Assessment/Plan Assessment Patient improving and working with physical therapy with improved pain control. Plan Patient is stable and continues to work with physical therapy and will be discharged home once cleared by physical therapy. Pradeep Jefferson MD May 15, 2018 20:29
[2018-05-15 22:00] VITALS: BP 141/80
[2018-05-16] MEDS: PERCOCET 5MG/325MG TAB PO PRN ×6 (00:51→22:12)
[2018-05-16 06:00] VITALS: BP 135/79
[2018-05-16] MEDS: DOCUSATE SODIUM 100 MG CAP PO SCH ×2 (09:00→22:11)
[2018-05-16] MEDS: SENOKOT S TAB PO SCH ×2 (09:00→22:11)
[2018-05-16 14:00] VITALS: BP 141/74
[2018-05-16] MEDS ORDERED: CLOPIDOGREL 300 MG TAB (PLAVIX) PO STA (16:23)
--- NOTE | 2018-05-16 16:23 | IPNPDOC ---
Subjective General Date/Time Seen The patient was seen on 05/16/18 at 16:22. Subject Chief Complaint/History The patient is a 22-year-old male admitted with a reason for visit of Claudication. Patient without complaints. Patient has been cleared by physical therapy for discharge but wants to wait and go home tomorrow morning. Patient states his pain is well controlled. Current Medications Current Medications Current Medications Acetaminophen/ Hydrocodone Bitart ([place], [place] 5/325) 1 tab Q4HP PRN PO MODERATE PAIN (PS 5-7) Last administered on 05/03/18at 18:01; Start 05/01/18 at 18:45; Stop 05/03/18 at 20:44; Status DC Acetaminophen/ Hydrocodone Bitart ([place], [place] 5/325) 2 tab Q4HP PRN PO SEVERE PAIN (PS 8-10) Last administered on 05/08/18at 00:39; Start 05/07/18 at 15:45; Stop 05/08/18 at 01:06; Status DC Acetaminophen/ Hydrocodone Bitart ([place], [place] 5/325) 2 tab Q4HP PRN PO SEVERE PAIN (PS 8-10) Last administered on 05/04/18at 12:06; Start 05/03/18 at 20:45; Stop 05/04/18 at 13:33; Status DC Bisacodyl (Dulcolax Suppository) 10 mg DAILYPRN PRN LA CONSTIPATION; Start 05/01/18 at 18:45 Diphenhydramine HCl (Benadryl) 12.5 mg Q4HP PRN IV ITCHING; Start 05/04/18 at 13:30 Docusate Sodium (Colace) 100 mg BID PO Last administered on 05/15/18at 20:31; Start 05/01/18 at 21:00 Fentanyl Citrate (Sublimaze) 25 mcg Q5MP PRN IV MODERATE PAIN (PS 4-7) Last administered on 05/02/18at 23:50; Start 05/02/18 at 23:30; Stop 05/03/18 at 00:20; Status DC Heparin Sodium (Porcine) (Heparin) ASDIRECTED PRN IV SEE LABEL COMMENTS; Start 05/01/18 at 19:00; Stop 05/02/18 at 23:52; Status DC Heparin Sodium (Porcine) 58759 units/IV Miscellaneous Supplies 250 ml @ 0 mls/hr Q0M IV Last administered on 05/01/18at 21:07; Start 05/01/18 at 18:51; Stop 05/02/18 at 23:34; Status DC Hydromorphone HCl (Dilaudid) 0.5 mg Q15MP PRN IV MODERATE/SEVERE PAIN (PS 5-10) Last administered on 05/02/18at 23:58; Start 05/02/18 at 23:45; Stop 05/03/18 at 01:15; Status DC Lactated Ringer's 1,000 ml @ 100 mls/hr Q10H IV ; Start 05/02/18 at 23:30; Stop 05/03/18 at 01:00; Status DC Magnesium Hydroxide (Milk Of Magnesia) 30 ml DAILYPRN PRN PO CONSTIPATION Last administered on 05/07/18at 08:26; Start 05/01/18 at 18:45 Metoclopramide HCl (REGLAN INJection) 10 mg Q6HP PRN IV IF N/V OERSISTS IN RECOVERY Last administered on 05/03/18at 00:33; Start 05/03/18 at 00:30; Stop 05/03/18 at 01:30; Status DC Morphine Sulfate (Morphine Sulfate In 0.9%Nacl Iv Bag) 1 mg ASDIRECTED PRN IV SEE LABEL COMMENTS Last administered on 05/06/18at 14:00; Start 05/04/18 at 13:30; Stop 05/07/18 at 15:44; Status DC Morphine Sulfate (Morphine Sulfate Inj) 2 mg Q30MP PRN IV SEVERE PAIN (PS 8-10) Last administered on 05/04/18at 12:34; Start 05/03/18 at 01:15; Stop 05/04/18 at 13:33; Status DC Nalbuphine HCl (Nubain) 2.5 mg Q6HP PRN IV PRURITIS; Start 05/04/18 at 13:30; Stop 05/11/18 at 13:29; Status DC Naloxone HCl (Narcan) 0.1 mg Q5MP PRN IV SEE LABEL COMMENTS; Start 05/04/18 at 13:30 Non-Formulary Medication (Epidural/LEAD INVESTIGATOR [place]) USE THIS ENTRY TO VEND ... Q1M PRN XX SEE LABEL COMMENTS; Start 05/04/18 at 13:30; Status Cancel Non-Formulary Medication (Heparin Iv Rate Change Documentation ml/ Hr) ASDIRECTED XX ; Start 05/01/18 at 19:00; Stop 05/02/18 at 23:51; Status DC Ondansetron HCl (ZOFRAN INJection) 4 mg Q6HP PRN IV NAUSEA; Start 05/04/18 at 13:30 Ondansetron HCl (ZOFRAN INJection) 4 mg Q6HP PRN IV NAUSEA OR VOMITING Last administered on 05/03/18at 01:23; Start 05/03/18 at 01:15 Oxycodone/ Acetaminophen (Percocet 5mg/ 325mg Tablet) 1 tab ASDIRECTED PRN PO MILD/MODERATE PAIN (PS 1-7) Last administered on 05/03/18at 00:09; Start 05/02/18 at 23:30; Stop 05/03/18 at 01:00; Status DC Oxycodone/ Acetaminophen (Percocet 5mg/ 325mg Tablet) 1 tab Q2HP PRN PO MILD/MODERATE PAIN (PS 1-7) Last administered on 05/14/18at 16:56; Start 05/08/18 at 23:00 Oxycodone/ Acetaminophen (Percocet 5mg/ 325mg Tablet) 2 tab Q4HP PRN PO SEVERE PAIN (PS 8-10) Last administered on 05/16/18at 13:43; Start 05/08/18 at 01:15 Senna/Docusate Sodium (Senokot S) 1 tab BID PO Last administered on 05/15/18at 20:31; Start 05/01/18 at 21:00 Sodium Chloride 1,000 ml @ 15 mls/hr Q24H IV Last administered on 05/07/18at 02:24; Start 05/04/18 at 13:29; Stop 05/07/18 at 15:44; Status DC Allergies Coded Allergies: No Known Allergies (Unverified , 04/22/18) VITAL SIGNS VITAL SIGNS Vital Signs Date Time Temp Pulse Resp B/P (MAP) Pulse Ox O2 Delivery O2 Flow Rate FiO2 05/16/18 14:13 18 05/16/18 14:00 98.0 85 18 141/74 (96) 100 05/16/18 13:43 18 05/16/18 09:09 18 05/16/18 06:00 98.7 77 18 135/79 (97) 98 05/16/18 05:26 18 05/16/18 00:51 18 05/15/18 22:00 97.3 86 18 141/80 (100) 100 05/15/18 20:32 18 05/15/18 16:33 18 Intake & Output 05/16/18 05:59 Intake Total 3190 ml Output Total 2100 ml Balance 1090 ml Microbiology 05/12/18 Stool Occult Blood (BELEM) - Final, Complete Current Medications Medications (Trade) Dose Ordered Sig/Izabela Route PRN Reason Start Time Stop Time Status Last Admin Dose Admin Docusate Sodium (Colace) 100 mg BID PO 05/01/18 21:00 05/15/18 20:31 Magnesium Hydroxide (Milk Of Magnesia) 30 ml DAILYPRN PRN PO CONSTIPATION 05/01/18 18:45 05/07/18 08:26 Ondansetron HCl (ZOFRAN INJection) 4 mg Q6HP PRN IV NAUSEA OR VOMITING 05/03/18 01:15 05/03/18 01:23 Oxycodone/ Acetaminophen (Percocet 5mg/ 325mg Tablet) 1 tab Q2HP PRN PO MILD/MODERATE PAIN (PS 1-7) 05/08/18 23:00 05/14/18 16:56 Senna/Docusate Sodium (Senokot S) 1 tab BID PO 05/01/18 21:00 05/15/18 20:31 Microbiology 05/12/18 Stool Occult Blood (BELEM) - Final, Complete Objective Physical Examination General Exam: Positive: Alert, Cooperative, Mild Distress Eye Exam: Positive: PERRLA, Conjunctiva & lids normal, EOMI ENT Exam: Positive: Atraumatic, Mucous membr. moist/pink, Pharynx Normal, Tongue Midline, Pharyngeal Edema, Nares Patent, Ext Auditory Canal Nml, Pinna Normal Neck Exam: Positive: Supple, +2 carotid pulse wo bruit; Negative: JVD, thyromegaly, Lymphadenopathy Chest Exam: Positive: Clear to auscultation, Normal air movement; Negative: Rales, Rhonchi, Wheezing, Diminished Heart Exam: Positive: Rate Normal; Negative: Tachycardic, Bradycardic, Regular Rhythm, Irregular Rhythm, Gallops, Murmurs, Rubs Telemetry: Positive: No significant arrhythmia, Sinus Abdomen Exam: Positive: Normal bowel sounds, Soft; Negative: BS Hyperactive, BS Hypoactive, Tenderness, Hepatospenomegaly, Mass, Hernia Male Exam: Positive: Normal Genital Exam Extremity Exam: Positive: Normal pulses (patient with nonpalpable popliteal dorsalis pedis and posterior tibial pulses in the right lower extremity. The pulses in the right lower extremity are obtainable with continuous wave Doppler ultrasound and are monophasic.); Negative: Clubbing, Cyanosis, Edema, Tenderness, Swelling Skin Exam: Positive: Nl turgor and temperature; Negative: Rash, Breakdown, Lesion, Pruritus Neuro Exam: Positive: Normal Gait, Normal Speech, Strength at 5/5 X4 ext, Normal Tone, Sensation Intact, Cranial Nerves 3-12 NL, Reflexes 2+ Psych Exam: Positive: Mental status NL, Mood NL, Memory Intact, Oriented x 3; Negative: Anxiety Assessment/Plan Assessment Patient is stable and has been cleared by physical therapy for discharge and will be discharged in the morning. Patient vik were removed. Patient has adequate pain control with oral narcotics. Patient has been started on Plavix and cilostazol. Patient was again counseled on the need to not smoke once he is discharged. Plan Discharge in [place]. Pradeep Jefferson MD May 16, 2018 16:23
[2018-05-16] MEDS: CILOSTAZOL 100 MG TAB (PLETAL) PO SCH (17:28)
[2018-05-16 22:00] VITALS: BP 132/72
[2018-05-16] MEDS: GABAPENTIN 100 MG CAP PO SCH (22:11)
[2018-05-17] MEDS: PERCOCET 5MG/325MG TAB PO PRN ×2 (03:41→08:16)
[2018-05-17 06:00] VITALS: BP 133/77
[2018-05-17 06:27] LABS: HEMATOCRIT 28.1 % (42.0-52.0); HEMOGLOBIN 9.3 g/dl (13.5-17.5); MEAN CORPUSCULAR HEMOGLOBIN 29.1 pg (27.0-33.0); MEAN CORPUSCULAR HGB CONC 33.1 g/dl (32.0-36.5); MEAN CORPUSCULAR VOLUME 87.8 fl (80.0-96.0); PLATELET COUNT, AUTOMATED 276 10^3/uL (150-450); WHITE BLOOD COUNT 10.2 10^3/uL (4.0-10.0)
[2018-05-17 06:54] LABS: BLOOD UREA NITROGEN 11 MG/DL (7-18); CALCIUM LEVEL 8.9 MG/DL (8.5-10.1); CARBON DIOXIDE LEVEL 26 MEQ/L (21-32); CHLORIDE LEVEL 101 MEQ/L (98-107); CHOLESTEROL LEVEL 125 MG/DL (<200); CHOLESTEROL RISK RATIO 3.571 (<5); CREATININE FOR GFR 0.92 MG/DL (0.70-1.30); GLOMERULAR FILTRATION RATE > 60.0 (>60); GLUCOSE, FASTING 96 MG/DL (70-100); HDL CHOLESTEROL 35 MG/DL (>40); LDL CHOLESTEROL 74 MG/DL (<100); NON-HDL-C 90 MG/DL; POTASSIUM SERUM 3.9 MEQ/L (3.5-5.1); SODIUM LEVEL 137 MEQ/L (136-145); TRIGLYCERIDES LEVEL 81 MG/DL (<150)
[2018-05-17] MEDS: GABAPENTIN 100 MG CAP PO SCH (08:15)
[2018-05-17] MEDS: DOCUSATE SODIUM 100 MG CAP PO SCH (09:00)
[2018-05-17] MEDS ORDERED: CLOPIDOGREL 75 MG TAB PO SCH (09:00)
[2018-05-17] MEDS: SENOKOT S TAB PO SCH (09:00)
[2018-05-17] MEDS ORDERED: CILO100T PO ×2 (09:18→11:04)
[2018-05-17] MEDS ORDERED: CLOP75TA2 PO ×2 (09:18→11:04)
[2018-05-17] MEDS ORDERED: PERCOCET PO ×2 (09:18→11:04)
[2018-05-17] MEDS ORDERED: GABA-1171 PO ×2 (09:18→11:04)
[2018-05-17] MEDS: CILOSTAZOL 100 MG TAB (PLETAL) PO SCH (10:21)
--- NOTE | 2018-05-17 12:14 | DS.PDOC ---
Discharge Summary General Date of Admission May 01, 2018 at 18:48 Date of Discharge 05/17/2018 Attending Physician: Pradeep Jefferson MD Discharge Summary PROCEDURES PERFORMED DURING STAY: Right lower extremity angiogram with attempted recanalization. Attempted right lower extremity femoral tibial bypass. ADMITTING DIAGNOSES: 1. Right lower extremity claudication with right superficial femoral and popliteal artery occlusion. DISCHARGE DIAGNOSES: 1. Right lower extremity claudication with right superficial femoral and popliteal artery occlusion. COMPLICATIONS/CHIEF COMPLAINT: Claudication. HISTORY OF PRESENT ILLNESS: Patient is a 22-year-old male with occlusion of his right superficial femoral and popliteal arteries who underwent multiple attempts at revascularization endovascularly without success. HOSPITAL COURSE: Patient was admitted and underwent a another attempt at endovascular treatment of his right lower extremity claudication without success. Patient was then subsequently taken to the operating room to undergo a right femoral to tibial artery bypass graft with reverse saphenous vein graft from the right lower extremity due to the severe inflammatory process and disease process in the right lower extremity the tibial vessels were not able to be dissected free and used for target vessels for distal bypass. The procedure was aborted while the patient still had adequate flow to the right lower extremity. It was discussed with the patient postoperatively that the disease process is secondary to probable Buerger's disease with injury to his right restrepo perficial femoral artery previously. The patient has claudication and the discussion was that he will stop smoking and be treated conservatively. Patient underwent aggressive physical therapy during his hospitalization with prolonged treatment for severe postoperative pain.. DISCHARGE MEDICATIONS: Please see below. ALLERGIES: Please see below. PHYSICAL EXAMINATION ON DISCHARGE: VITAL SIGNS: Please see below. GENERAL: No apparent distress HEENT: Normal NECK: Supple with no carotid bruits CARDIOVASCULAR EXAMINATION: Regular rate and rhythm RESPIRATORY EXAMINATION: Clear to auscultation ABDOMINAL EXAMINATION: Soft nontender nondistended EXTREMITIES: Bilateral lower extremities were warm and well perfused. Right lower extremity incisions are clean and well-healed. SKIN: Warm and well perfused NEUROLOGICAL EXAMINATION: No focal deficits PSYCHIATRIC EXAMINATION: Normal LABORATORY DATA: Please see below. IMAGING: None PROGNOSIS: Good ACTIVITY: As tolerated. DIET: Regular DISCHARGE PLAN: Home DISPOSITION: 01 Home, Self-Care. DISCHARGE INSTRUCTIONS: 1. Follow-up postoperatively in the office in 7-10 days. ITEMS TO FOLLOWUP ON ON OUTPATIENT: 1. Tobacco cessation. DISCHARGE CONDITION: Stable. TIME SPENT ON DISCHARGE: Greater than 45 minutes. Vital Signs/I&Os Laboratory Tests 2/23/19 06:04 Red Blood Count 3.20 L, Mean Corpuscular Volume 87.8, Mean Corpuscular Hemoglobin 29.1, Mean Corpuscular Hemoglobin Concent 33.1, Red Cell Distribution Width 12.1 Vital Signs Date Time Temp Pulse Resp B/P (MAP) Pulse Ox O2 Delivery O2 Flow Rate FiO2 05/17/18 08:46 18 05/17/18 08:16 16 05/17/18 06:00 97.5 93 18 133/77 (95) 98 05/17/18 03:41 18 05/16/18 22:12 18 05/16/18 22:00 98.6 122 16 132/72 (92) 100 05/16/18 17:28 18 05/16/18 14:00 98.0 85 18 141/74 (96) 100 05/16/18 13:43 18 Intake & Output 05/17/18 06:00 Intake Total 1030 ml Output Total 0 ml Balance 1030 ml Laboratory Tests 05/17/18 06:04: White Blood Count 10.2H, Red Blood Count 3.20L, Hemoglobin 9.3L, Hematocrit 28.1L, Mean Corpuscular Volume 87.8, Mean Corpuscular Hemoglobin 29.1, Mean Corpuscular Hemoglobin Concent 33.1, Red Cell Distribution Width 12.1, Platelet Count 276, Nucleated Red Blood Cells % (auto) 0.0, Sodium Level 137, Potassium Level 3.9, Chloride Level 101, Carbon Dioxide Level 26, Anion Gap 10, Blood Urea Nitrogen 11, Creatinine 0.92, Glomerular Filtration Rate > 60.0, Fasting Glucose 96, Calcium Level 8.9, Triglycerides Level 81, LDL Cholesterol 74, Total Cholesterol 125, Non-HDL Cholesterol (LDL + VLDL) 90, Total HDL Cholesterol 35L, Cholesterol/HDL Ratio 3.571 Microbiology 05/12/18 Stool Occult Blood (BELEM) - Final, Complete Vital Signs Date Time Temp Pulse Resp B/P (MAP) Pulse Ox O2 Delivery O2 Flow Rate FiO2 05/17/18 08:46 18 05/17/18 06:00 97.5 93 133/77 (95) 98 I&O- Last 24 Hours up to 6 AM 05/17/18 06:00 Intake Total 1030 ml Output Total 0 ml Balance 1030 ml Vital Signs Date Time Temp Pulse Resp B/P (MAP) Pulse Ox O2 Delivery O2 Flow Rate FiO2 05/17/18 08:46 18 05/17/18 08:16 16 05/17/18 06:00 97.5 93 18 133/77 (95) 98 05/17/18 03:41 18 05/16/18 22:12 18 05/16/18 22:00 98.6 122 16 132/72 (92) 100 05/16/18 17:28 18 05/16/18 14:00 98.0 85 18 141/74 (96) 100 05/16/18 13:43 18 Intake & Output 05/17/18 06:00 Intake Total 1030 ml Output Total 0 ml Balance 1030 ml Laboratory Tests 05/17/18 06:04: White Blood Count 10.2H, Red Blood Count 3.20L, Hemoglobin 9.3L, Hematocrit 28.1L, Mean Corpuscular Volume 87.8, Mean Corpuscular Hemoglobin 29.1, Mean Corpuscular Hemoglobin Concent 33.1, Red Cell Distribution Width 12.1, Platelet Count 276, Nucleated Red Blood Cells % (auto) 0.0, Sodium Level 137, Potassium Level 3.9, Chloride Level 101, Carbon Dioxide Level 26, Anion Gap 10, Blood Urea Nitrogen 11, Creatinine 0.92, Glomerular Filtration Rate > 60.0, Fasting Glucose 96, Calcium Level 8.9, Triglycerides Level 81, LDL Cholesterol 74, Total Cholesterol 125, Non-HDL Cholesterol (LDL + VLDL) 90, Total HDL Cholesterol 35L, Cholesterol/HDL Ratio 3.571 Microbiology 05/12/18 Stool Occult Blood (BELEM) - Final, Complete Laboratory Data Labs 24H Laboratory Tests 2 05/17/18 06:04: Nucleated Red Blood Cells % (auto) 0.0, Anion Gap 10, Glomerular Filtration Rate > 60.0, Calcium Level 8.9, Triglycerides Level 81, LDL Cholesterol 74, Total Cholesterol 125, Non-HDL Cholesterol (LDL + VLDL) 90, Total HDL Cholesterol 35L, Cholesterol/HDL Ratio 3.571 CBC/BMP Laboratory Tests 05/17/18 06:04 Red Blood Count 3.20 L, Mean Corpuscular Volume 87.8, Mean Corpuscular Hemoglobin 29.1, Mean Corpuscular Hemoglobin Concent 33.1, Red Cell Distribution Width 12.1 Microbiology Microbiology 05/12/18 Stool Occult Blood (BELEM) - Final, Complete Discharge Medications Scheduled Cilostazol (Cilostazol) 100 Mg Tab, 100 MG PO BID@0730,1730 Clopidogrel Bisulfate (Clopidogrel) 75 Mg Tab, 75 MG PO DAILY Ferrous Gluconate (Ferrous Gluconate) 324 Mg Tab, 1 TAB PO DAILY for iron Gabapentin (Gabapentin) 100 Mg Cap, 100 MG PO TID Scheduled PRN Oxycodone/Acetaminophen (Percocet 5MG/325MG Tablet) 1 Tab Tab, 2 TAB PO Q6HP PRN for SEVERE PAIN (PS 8-10) Allergies Coded Allergies: No Known Allergies (Unverified , 04/22/18) Pradeep Jefferson MD May 17, 2018 12:14
--- NOTE | 2018-05-21 15:51 | REPIR ---
DATE OF PROCEDURE: 05/01/2018 ATTENDING SURGEON: Dr. Pedro Luis Jefferson ASSISTANTS: Fiorella Coker and Liliane Torres. PREOPERATIVE DIAGNOSES: Right lower extremity claudication, right superficial femoral and popliteal artery occlusion, tobacco use. POSTOPERATIVE DIAGNOSES: Right lower extremity claudication, right superficial femoral and popliteal artery occlusion, tobacco use. PROCEDURE: Aortogram, iliofemoral angiogram, selective right common femoral artery catheter placement, selective right profunda femoris artery catheter placement, ultrasound-guided right posterior tibial artery cannulation, Mynx closure of the left common femoral arteriotomy. INDICATION: The patient is a 22-year-old male with complete occlusion of his right superficial femoral and popliteal arteries who will undergo attempted recanalization prior to undergoing bypass grafting. Risks, benefits, alternative treatment options were discussed with the patient. ANESTHESIA: Local sedation with 6 mg of Versed, 300 mcg of fentanyl and 20 mL of 2% lidocaine. HEPARIN: 8000 units. SEDATION TIME: 5:02 p.m. to 6:47 p.m. FLUOROSCOPY TIME: 14.3 minutes. CONTRAST: 27.5 mL COMPLICATIONS: None. DRAINS: None. SPECIMENS: None IMPLANT: Left femoral arterial Mynx closure device. DESCRIPTION OF PROCEDURE: The patient was taken to the angiography suite, placed supine on the angiography room table and then prepped and draped in a standard surgical fashion. The left common femoral artery was cannulated. A catheter placed in the aorta and over the bifurcation and in the right common femoral and profunda femoris arteries. The right posterior tibial artery was cannulated using ultrasound guidance and multiple attempts were made to traverse through the occluded popliteal and superficial femoral artery with reentry into the common femoral artery without success. Catheters and wires were removed, and Mynx closure was used close the arteriotomy in the left common femoral artery with an additional 10 minutes of adjunctive pressure applied for hemostasis. The posterior tibial sheath was removed with manual compression for hemostasis. Dressings were then applied. The patient tolerated the procedure well. All instrument, sponge, and needle counts were correct at the end of the case. There were no complications. Dr. Jefferson was present for and directed the entire case. The patient was transferred to the recovery room and subsequently to the floor in stable condition.
--- NOTE | 2018-05-21 17:26 | RO ---
DATE OF PROCEDURE: 05/02/2018 ATTENDING SURGEON: Dr. Pedro Luis Jefferson BUSINESS COMMUNICATIONS INSTRUCTOR: None. PREOPERATIVE DIAGNOSES: Right lower extremity claudication with tobacco use and occlusion of the right superficial femoral and popliteal arteries. POSTOPERATIVE DIAGNOSES: Right lower extremity claudication with tobacco use and occlusion of the right superficial femoral and popliteal arteries. PROCEDURE: Right greater saphenous vein harvest, right common femoral arterial exposure, right posterior tibial artery exposure, right dorsalis pedis artery exposure, right anterior tibial artery exposure. INDICATION: The patient is a 22-year-old male with his tobacco history and injury to his right leg with complete occlusion of his right superficial femoral and popliteal arteries with right lower extremity claudication. The patient will undergo attempted right lower extremity bypass grafting with reverse saphenous vein graft. Risks, benefits, and alternative treatment options were discussed with the patient. ANESTHESIA: General endotracheal. ESTIMATED BLOOD LOSS: 1500 mL IV FLUIDS: 5000 units, 1 unit of packed red blood cells URINE OUTPUT: 200 mL HEPARIN: None. COMPLICATIONS: None. DRAINS: None. IMPLANTS: None. DESCRIPTION OF PROCEDURE The patient was taken to the operating room, placed supine on the operating room table and the right lower extremity was prepped and draped in a standard surgical fashion. The greater saphenous vein was harvested from the ankle to the midthigh. The common femoral artery was exposed through an oblique incision and encircled with Vesseloops. The posterior tibial artery was identified in the below-knee region and was noted to be severely adherent to the posterior tibial vessels and severely inflamed. The posterior tibial artery was then exposed at the ankle and noted to be similar with severe thickening and adherent to the surrounding tissue and posterior tibial veins. The anterior tibial artery was then exposed and this also was severely adherent and inflamed as well as the dorsalis pedis artery. Due to inability to completely dissect any artery free due to the severe inflammatory response and concerns for worsening ischemia of the right foot rather than improvement, the procedure was aborted. All incisions were closed using #2-0 Vicryl to approximate the deeper layers and vik to approximate the skin. The right lower extremity was well perfused at the completion of the attempted bypass. The patient was transferred to the recovery room awake, alert, extubated and in stable condition.
== END 2018-05-17 10:32 | disposition home or self-care (01) | DRG 254 ==
LOC: M SDC 13:14 → M MSPAV 18:48 → M OR 18:48 → UNDOADMIN 18:48 → M MSPAV 19:00 → M OR 05-03 00:55 → M MSPAV 05-03 00:55 → UNDODISIN 05-17 10:32
PROVIDERS: ADMIT Surgery Vascular Surgery; ATTEND Surgery Vascular Surgery
PROC: B41F1ZZ Fluoroscopy of Right Lower Extremity Arteries using Low Osmolar Contrast (ICD-10-PCS; 2018-05-01)
PROC: 06BP0ZZ Excision of Right Saphenous Vein, Open Approach (ICD-10-PCS; 2018-05-02)
PROC: 04JY0ZZ Inspection of Lower Artery, Open Approach (ICD-10-PCS; principal; 2018-05-02 14:00)
DX: I70.211 Atherosclerosis of native arteries of extremities with intermittent claudication, right leg (principal); Z79.899 Other long term (current) drug therapy; F17.200 Nicotine dependence, unspecified, uncomplicated

== ENCOUNTER → 2018-08-29 | Outpatient (CLI) | payer OTHER ==
[~2018-08-29] MED LIST changes: +CILO100T PO; +CLOP75TA2 PO; +GABA-1171 PO; +HYDR-3715 PO; -LR 1,000 ML IV ONE; -NORC1TAB4 PO; +NORC1TAB7 PO; -NORCOTAB PO; +PERCOCET PO
--- NOTE | 2018-08-29 14:56 | REP ---
DEEP VENOUS ULTRASONOGRAPHY RIGHT THIGH, RULE OUT DVT: REASON FOR EXAM: Pain and swelling. TECHNIQUE: Multiple ultrasonographic images of the deep venous structures of the right thigh were obtained from the common femoral vein to the popliteal vein along with Doppler interrogation and color flow Doppler images. FINDINGS: There is no abnormal echogenic material seen within any of the visualized deep venous structures that would suggest acute thrombosis. Coaptation is unremarkable throughout. Doppler interrogation shows an expected response to respiratory variability and augmentation. The color flow images show what appears to be a normal vascular pattern throughout. IMPRESSION: There is no ultrasonographic evidence of deep venous thrombosis involving any of the visualized deep venous structures of the right thigh, as described above. Electronically Signed by Mike Coreas DO 08/29/2018 04:45 P
== END ==
LOC: M RAD 13:13
PROVIDERS: ATTEND Family Medicine
DX: R60.0 Localized edema (principal)

== ENCOUNTER → 2018-11-28 | Outpatient (CLI) | payer OTHER ==
--- NOTE | 2018-11-28 15:29 | REP ---
BILATERAL LOWER EXTREMITY DUPLEX DOPPLER ARTERIAL ULTRASOUND: Real-time ultrasound evaluation and duplex Doppler interrogation of bilateral lower extremity arterial systems is performed. MARIUSZ on the left is 0.9 but could not be calculated on the right. There is severe stenosis with trickle flow seen in the proximal right common femoral artery. The distal right common femoral artery is reconstituted via the pelvic collateral artery. There is minimal flow in the proximal right superficial femoral artery to the mid aspect about 12 cm distal to its origin. The distal superficial femoral artery appears occluded as does the right popliteal and proximal anterior tibial artery. Multiple collateral arteries are seen in the region of the knee and popliteal fossa. The anterior and posterior tibial arteries could not be identified. Distal anterior tibial artery is seen which demonstrates slow flow. There are mild phasic waveforms of the right common femoral, proximal superficial femoral and distal anterior tibial arteries. On the left, there is no plaquing or narrowing and certainly no evidence of hemodynamically significant stenosis with diffuse triphasic waveforms noted. Right Peak Left Peak Systolic Velocity Systolic velocity Common femoral artery 102 cm/s 105 cm/s Profunda 35 cm/s 62 cm/s Proximal SFA 40 cm/s 69 cm/s Mid SFA 37 cm/s 78 cm/s Distal SFA occluded 43 cm/s Popliteal occluded 41 cm/s Proximal AIDA occluded 18 cm/s Tibial peroneal trunk collaterals 46 cm/s Proximal ROCK LOADER collaterals 28 cm/s Distal ROCK LOADER not seen 32 cm/s Distal AIDA 12 cm/s 57 cm/s IMPRESSION: High grade stenosis right common femoral artery proximally with reconstitution of the distal common femoral artery via a pelvic collateral artery. Significant narrowing of proximal and mid right SFA with occlusion 12 cm distal to its origin. Collateral vessels traverse distally. Only the lower [place]oux distal right anterior tibial artery is visualized in the lower leg with slow flow. No evidence of significant stenosis left lower extremity arterial system. Electronically Signed by Blu Bray MD 11/28/2018 04:37 P
== END ==
LOC: M RAD 12:20
PROVIDERS: ATTEND Physician Assistant
DX: Z48.812 Encounter for surgical aftercare following surgery on the circulatory system (principal); I70.202 Unspecified atherosclerosis of native arteries of extremities, left leg